=== PATIENT | female | born 1950 | race Caucasian/White ===

== ENCOUNTER → 2023-09-26 | Outpatient (CLI) | payer MEDICARE, SELFPAY ==
--- NOTE | 2023-09-26 11:37 | US_ITS ---
STUDY: RENAL ULTRASOUND - COMPLETE REASON FOR EXAM: Female, 73 years old. UTI TECHNIQUE: Ultrasound evaluation of the kidneys was performed with real-time and static olm[place]-scale imaging. COMPARISON: None. FINDINGS: RIGHT KIDNEY: Normal location of the right kidney, which is normal in size. The right kidney measures 10.4 cm. There is a normal cortex of the right kidney. The renal cortex measures 1.4 cm. There is no right renal mass or cyst. There are no right renal calculi. There is no right hydronephrosis. DISTAL RIGHT URETER: There is non-visualization of the distal right ureter. There is no demonstrated right ureterovesical junction calculus. There is a visualized right ureteral jet. LEFT KIDNEY: Normal location of the left kidney, which is normal in size. The left kidney measures 10.3 cm. There is a normal cortex of the left kidney. The renal cortex measures 1.5 cm. There is no left renal mass or cyst. There are no left renal calculi. There is no left hydronephrosis. DISTAL LEFT URETER: There is non-visualization of the distal left ureter. There is no demonstrated left ureterovesical junction calculus. There is a visualized left ureteral jet. BLADDER: The distended urinary bladder has a volume of 236 ml. The empty urinary bladder has a volume of ml. There is a normal wall thickness of the distended urinary bladder. There is no demonstrated mass within the urinary bladder. There are no demonstrated bladder calculi. US/Kidney and Bladder IMPRESSION: Normal ultrasound of the kidneys and urinary bladder. Electronically Signed: Tim Chiu MD at 22:57 EST ,
== END | disposition home or self-care (01) ==
PROVIDERS: PCP Family Medicine; Referring Provider Urology; Visit Provider Urology
DX: N39.0 Urinary tract infection, site not specified (principal)
CPT/HCPCS: 76770

== ENCOUNTER → 2023-12-13 | Outpatient (CLI) | payer MEDICARE, SELFPAY ==
[2023-12-15 09:57] LABS: Anion Gap 3 (5-15); BUN 17 mg/dL (7-18); BUN/Creat Ratio 15.9 RATIO (10-20); Calcium,Total 9.4 mg/dL (8.5-10.1); Chloride 102 mmol/L (98-107); Creatinine, Serum 1.07 mg/dL (0.55-1.02); EST Glomerular Filtration Rate 53 mL/min (>60); Est Glom Filt Rate - Afr Amer 64 mL/min (>60); Glucose 292 mg/dL (74-106); Potassium 4.1 mmol/L (3.5-5.1); Sodium Level 132 mmol/L (136-145)
[2023-12-15 10:07] LABS: Hemoglobin A1c 9.4 % (3.8-5.6)
== END | disposition home or self-care (01) ==
LOC: SDC 06-18 08:13
PROVIDERS: Anesthesiology; PCP Family Medicine; Referring Provider Urology; Visit Provider Urology
DX: N32.9 Bladder disorder, unspecified (principal); N39.0 Urinary tract infection, site not specified; N76.0 Acute vaginitis; N95.2 Postmenopausal atrophic vaginitis; R35.1 Nocturia; N81.10 Cystocele, unspecified; N81.6 Rectocele; E16.9 Disorder of pancreatic internal secretion, unspecified
CPT/HCPCS: 36415; 80048; 83036; 87086; 87088; 93005

== ENCOUNTER 2024-01-18 05:45 | Day surgery (SDC) | payer MEDICARE, SELFPAY ==
--- OUTSIDE RECORDS SUMMARY | 2024-01-18 05:56 | XMS RPT_ITS | CCD ---
Author Name Unknown Address [address] [place] [address] Organization [facility] Care Team Providers Care Director Web Name Role Phone ANTOINE OCAMPO Consulting Unavailable JHOANA CLARKE Attending Unavailable JHOANA CLARKE Primary Care Unavailable JHOANA CLARKE Admitting Unavailable PROVIDER, UNKNOWN Consulting Unavailable PROVIDER, UNKNOWN Consulting Unavailable PROVIDER, UNKNOWN Consulting Unavailable Esperanza Ng Primary Care Provider Antione Ocampo MD Primary Care Provider ANTIONE OCAMPO Primary Care Unavailable JULIO AZEVEDO Attending Unavailable ANTIONE OCAMPO Primary Care Unavailable ESPERANZA NG Primary Care Unavailabl e JULIO AZEVEDO Referring Unavailable Esperanza Ng Primary Care Provider Antione Ocampo MD Unavailable Marvin JONES, Dr. Diallo Unavailable Dr. Ashlee Vela MD Unavailable ([place]), [facility] Unavailabl e Dr. Ej White MD Unavailable Traci Parham Unavailable [facility] Unavailable [phone] Claudio Clemente MD Unavailable [facility] Sur[facility] Unavailable Carolina Abraham MD Unavailable Melanie Puckett LPN Unavailable Julio De León PA-C Unavailable Kimmy Goff LPN Unavailable Unavailable Navin CARGO SERVICES COORDINATOR, Suzy C Unavailable Unavailable Gogoi (scribe), Hemanta Unavailable Unavaila ble Lee CARGO SERVICES COORDINATOR, Sindhu Unavailable Unavailable Davis JONES, Esperanza Burgess Unavailable Michael EDWARDS, Rola Marques Unavailable Farrah EDWARDS, Jesse Grant Unavailable [phone] Daphnie Yan Unavailable Unavailable Kristin CARGO SERVICES COORDINATOR, Alida Unavailable Unavaila ble Jhon CARGO SERVICES COORDINATOR, Dee Unavailable Unavailable Jorge GUZMAN, Rola Burgess Unavailable Unavaila ble Abbe CARGO SERVICES COORDINATOR, Toby Unavailable Unavailable Marvin GUZMAN, Anastasia Unavailable Toney GUZMAN, Linn Y Unavailable Unavailable Hamilton CARGO SERVICES COORDINATOR, Isha Unavailable Unavailable Mutersbaugh CARGO SERVICES COORDINATOR, Lety K Unavailable Unavai kush Cavazos PA-C, Edith J Unavailable [phone] Alon ([facility]), Erasmo Unavailable Unavailab le Sung OPERATOR HELPER, Nancy Unavailable Unavailable Richert CARGO SERVICES COORDINATOR, Nalini L Unavailable Unavailab le Derik CARGO SERVICES COORDINATOR, Carolina M Unavailable Unavailab le Daniels CARGO SERVICES COORDINATOR, Gabrielle Gonzalez Unavailable Unavailab le Behzad MA, Dee Unavailable Unavailable Vanaman, Lisa A Unavailable Unavailable Vess CARGO SERVICES COORDINATOR, Nenelsone L Unavailable Unavailable Wengerd CARGO SERVICES COORDINATOR, Estrellita Unavailable Unavailmiranda Mcfarland CARGO SERVICES COORDINATOR, Candace Garza Unavailable Unavaila ble Unavailable Unavailable King KAREN, Dr. Garnett Unavailable Allergies Allergy Classification Reported Allergen(s) Allergy Type Date of Onset Reaction(s) Facility (2 sources) Aspirin; Translations: [ASPIRIN] Drug Allergy 6 [facility] Repository (1 source) Sulfonamides (Antibiotic) Drug allergy (disorder) [facility] Repository (12 sources) Aspirin Drug Allergy 6 [facility] Work Phone: (4 sources) Sulfonamides (Antibiotic); Translations: [SULFA (SULFONAMIDE ANTIBIOTICS)] Propensity to adverse reactions 6 [facility] Work Phone: (1 source) [facility], [facility].; [facility], [facility]. (1 source) [employer].; [employer]. (1 source) [employer].; [employer]. (1 source) [employer].; [employer]. (1 source) [employer].; [employer]. (1 source) [employer].; [employer]. (1 source) [employer].; [employer]. (1 source) [employer].; [employer]. (1 source) [employer].; [employer]. Medications Current Medications Medication Drug Class(es) Dates Sig (Normalized) Sig (Original) ascorbic acid 1000 mg oral tablet (12 sources) Vitamin C Completed/Discontinued Medications Medication Drug Class(es) Dates Sig (Normalized) Sig (Original) ALPRAZolam 0.5 mg oral tablet (9 sources) Benzodiazepine Start: 11-17-2014 End: 01-16-2015 amoxicillin 875 mg / clavulanate 125 mg oral tablet (18 sources) Penicillin-class Antibacterial Start: 08-14-2023 End: 08-24-2023 Problems Active Problems Problem Classification Problem Date Documented Da te Episodic/Chronic Acute cerebrovascular disease (9 sources) Hematoma of subdural space of neuraxis; Translations: [Subdural hemorrhage] 10-14-2020 Chronic Administrative/social admission (9 sources) Issue of repeat prescriptions 05-17-2022 Episodic Allergic reactions (20 sources) Contact dermatitis; Translations: [Unspecified contact dermatitis, unspecified cause] 06-12-2019 Episodic Diabetes mellitus with complications (20 sources) Type 2 diabetes mellitus; Translations: [Type 2 diabetes mellitus with other specified complication] 10-24-2023 Chronic Diabetes mellitus without complication (20 sources) Diabetes mellitus; Translations: [Type 2 diabetes mellitus without complications] 03-02-2022 Chronic Disorders of lipid metabolism (20 sources) Hyperlipidemia; Translations: [Hyperlipidemia, unspecified] 10-24-2023 Chronic Essential hypertension (12 sources) Hypertensive disorder; Translations: [Essential (primary) hypertension] Onset: 01-18-2013 01-18-2013 Chronic Genitourinary symptoms and ill-defined conditions (20 sources) Increased frequency of urination; Translations: [Frequency of micturition] Episodic Headache; including migraine (9 sources) Headache; Translations: [Headache] 10-14-2020 Episodic Immunizations and screening for infectious disease (20 sources) Need for prophylactic vaccination and inoculation against influenza; Translations: [Needs influenza immunization] 09-02-2014 Episodic Malaise and fatigue (9 sources) Fatigue; Translations: [Other fatigue] 10-14-2020 Episodic Osteoarthritis (9 sources) Osteoarthritis of hip; Translations: [Osteoarthritis of hip, unspecified] 10-24-2023 Chronic Other aftercare (9 sources) Drug indicated; Translations: [Other alf (current) drug therapy] 05-17-2022 Episodic Other circulatory disease (9 sources) Vasculitis; Translations: [Arteritis, unspecified] 10-14-2020 Chronic Other circulatory disease (9 sources) 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; Translations: [Personal history of other diseases of the circulatory system] 10-24-2023 Episodic Other ear and sense organ disorders (9 sources) Impacted cerumen; Translations: [Impacted cerumen, unspecified ear] 10-14-2020 Episodic Other injuries and conditions due to external causes (9 sources) Unspecified site injury 10-14-2020 Episodic Other lower respiratory disease (9 sources) Cough; Translations: [Cough] 10-14-2020 Episodic Other nervous system disorders (9 sources) Ataxia; Translations: [Ataxia, unspecified] 10-14-2020 Episodic Other non-traumatic joint disorders (9 sources) Pain in left shoulder; Translations: [Pain in joint, shoulder region] 10-14-2020 Episodic Other nutritional; endocrine; and metabolic disorders (20 sources) Overweight in adulthood with body mass index of 25 or more but less than 30; Translations: [Body mass index (BMI) 27.0-27.9, adult] 04-11-2019 Episodic Other nutritional; endocrine; and metabolic disorders (18 sources) Overweight; Translations: [Overweight] 04-15-2022 Episodic Other screening for suspected conditions (not mental disorders or infectious disease) (20 sources) Encounter for screening mammogram for malignant neoplasm of breast; Translations: [Patient encounter status] Onset: 01-27-2023 01-27-2023 Episodic Other upper respiratory disease (9 sources) Allergic rhinitis; Translations: [Allergic rhinitis, unspecified] 10-14-2020 Chronic Residual codes; unclassified (9 sources) Influenza vaccination declined; Translations: [Immunization not carried out because of patient refusal] 10-24-2023 Episodic Skin and subcutaneous tissue infections (9 sources) Infection of finger; Translations: [Cellulitis of unspecified finger] 10-14-2020 Episodic Sprains and strains (9 sources) Shoulder strain; Translations: [Strain of unspecified muscle, fascia and tendon at shoulder and upper arm level, left arm, initial encounter] 10-14-2020 Episodic Transient cerebral ischemia (9 sources) Carotid artery insufficiency syndrome; 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)] 05-17-2022 Chronic Unclassified (9 sources) 06-23-2023 Unclassified (9 sources) 06-23-2023 Unclassified (9 sources) 06-23-2023 Urinary tract infections (20 sources) Acute cystitis; Translations: [Acute cystitis without hematuria] 10-14-2020 Episodic Viral infection (18 sources) Herpes zoster; Translations: [Zoster without complications] 10-14-2020 Episodic Past or Other Problems Problem Classification Problem Date Documented Date Episodic/Chronic Diabetes mellitus without complication (4 sources) Impaired glucose tolerance; Translations: [Impaired glucose tolerance (oral)] Onset: 01-18-2013 03 Episodic Residual codes; unclassified (3 sources) History of subdural hematoma; Translations: [Other specified postprocedural states] Onset: 01-18-2013 01-18-2013 Episodic Results Test Name Value Interpretation Reference Range Facil ity Vital Signs Date Time Vital Sign Value Performing Clinician Faci lity 10-24-2023 08:54-0500 Body height 165.1 cm Antione Ocampo MD Work Phone: [employer]; [employer] 10-24-2023 08:54-0500 Body mass index (BMI) [Ratio] 26.13 kg/m2 Antione Ocampo MD Work Phone: [employer]; [employer] 10-24-2023 08:54-0500 Body surface area Derived from formula 1.78 m2 Antione Ocampo MD Work Phone: [employer]; [employer] 10-24-2023 08:54-0500 Body weight 71.22 kg Antione Ocampo MD Work Phone: [facility], [facility].; [employer] [facility], Inc[employer] 10-24-2023 08:54-0500 Diastolic blood pressure 82 mm[Hg] Antione Ocampo MD Work Phone: [facility], Inc.; [employer] 10-24-2023 08:54-0500 Heart rate 74 /min Antione Ocampo MD Work Phone: [place] [employer] [facility], Inc.; [employer] 10-24-2023 08:54-0500 Systolic blood pressure 138 mm[Hg] Antione Ocampo MD Work Phone: [place] [employer] [facility], [employer].; [employer] 06-23-2023 09:54-0400 Body height 165.1 cm Toby Mcadams [facility], Inc.; [place] [employer] [facility], [facility] 06-23-2023 09:54-0400 Body mass index (BMI) [Ratio] 25.29 kg/m2 Toby Mcadams [facility], Inc.; [employer] 06-23-2023 09:54-0400 Body surface area Derived from formula 1.76 m2 Toby Mcadams CARGO SERVICES COORDINATOR [facility], Inc.; [employer] 06-23-2023 09:54-0400 Body weight 68.95 kg Toby Mcadams CARGO SERVICES COORDINATOR [facility], Inc.; [employer] 06-23-2023 09:54-0400 Diastolic blood pressure 57 mm[Hg] Toby Mcadams CARGO SERVICES COORDINATOR [facility], Inc.; [employer] [facility], Inc[facility] 06-23-2023 09:54-0400 Heart rate 71 /min Toby Mcadams CARGO SERVICES COORDINATOR [facility], Inc.; [employer] 06-23-2023 09:54-0400 Systolic blood pressure 97 mm[Hg] Toby Mcadams CARGO SERVICES COORDINATOR [facility], Inc.; [employer] 06-09-2023 09:39-0400 Body height 165.1 cm Alida Foster CARGO SERVICES COORDINATOR [facility] 06-09-2023 09:39-0400 Body mass index (BMI) [Ratio] 25.46 kg/m2 [facility].; [facility]. 06-09-2023 09:39-0400 Body surface area Derived from formula 1.77 m2 [facility].; [facility] 06-09-2023 09:39-0400 Body temperature 98.7 [degF] [facility].; [facility] 06-09-2023 09:39-0400 Body weight 69.4 kg [facility].; [facility] 06-09-2023 09:39-0400 Diastolic blood pressure 63 mm[Hg] [facility].; [facility] 06-09-2023 09:39-0400 Heart rate 69 /min [facility].; [facility] 06-09-2023 09:39-0400 Systolic blood pressure 99 mm[Hg] [facility].; [facility]. 04-09-2023 12:27-0400 Body temperature 97.81 [degF] Krislyn Aberegg PA Work Phone: [facility] 04-09-2023 12:27-0400 Body weight 70.76 kg Krislyn Aberegg PA Work Phone: [facility] 04-09-2023 12:27-0400 Diastolic blood pressure 80 mm[Hg] Krislyn Aberegg PA Work Phone: [facility] 04-09-2023 12:27-0400 Heart rate 70 /min Krislyn Aberegg PA Work Phone: [facility] 04-09-2023 12:27-0400 Respiratory rate 16 /min Krislyn Aberegg PA Work Phone: [facility] 04-09-2023 12:27-0400 SaO2% (BldA) [Mass fraction] 95 % Mickey PHILLIPS Work Phone: [facility] 04-09-2023 12:27-0400 Systolic blood pressure 124 mm[Hg] Mickey Sargent PA Work Phone: [facility] 01-09-2023 15:16-0500 Body height 165.1 cm Rola Patel RN [place] [employer] [facility].; [employer]. 01-09-2023 15:16-0500 Body mass index (BMI) [Ratio] 27.12 kg/m2 Rola Patel RN [place] [employer] [facility] Center[facility].; [employer] [facility]. 01-09-2023 15:16-0500 Body surface area Derived from formula 1.81 m2 Rola Patel RN [place] [employer] [facility].; [employer] [facility]. 01-09-2023 15:16-0500 Body temperature 98.6 [degF] Rola Patel RN [place] [employer].; [employer]. 01-09-2023 15:16-0500 Body weight 73.94 kg Rola Patel RN [place] [employer] [facility].; [employer]. 01-09-2023 15:16-0500 Diastolic blood pressure 78 mm[Hg] Rola Patel RN [employer] [facility].; [employer]. 01-09-2023 15:16-0500 Heart rate 73 /min Rola Patel RN [employer].; [employer]. 01-09-2023 15:16-0500 Systolic blood pressure 129 mm[Hg] Rola Patel RN [employer].; [employer] [facility]. 12-23-2022 09:09-0500 Body height 165.1 cm Carolina More LPN [place] [employer] [facility].; [employer]. 12-23-2022 09:09-0500 Body mass index (BMI) [Ratio] 26.79 kg/m2 Carolina [facility], Inc.; [employer] [facility], Inc[facility] 12-23-2022 09:09-0500 Body surface area Derived from formula 1.8 m2 Carolina Bravo [facility], [facility].; [employer] [facility], Inc[employer] 12-23-2022 09:09-0500 Body temperature 96.2 [degF] Carolina Bravo [facility], [facility].; [employer] [facility], Inc[facility] 12-23-2022 09:09-0500 Body weight 73.03 kg Carolina Bravo [facility], [facility].; [employer] [facility], Inc[facility] 12-23-2022 09:09-0500 Diastolic blood pressure 82 mm[Hg] Carolina [facility], Inc.; [employer] [facility], Inc[facility] 12-23-2022 09:09-0500 Heart rate 83 /min Carolina Bravo [facility], Inc.; [employer] [facility], Inc[facility] 12-23-2022 09:09-0500 Systolic blood pressure 123 mm[Hg] Carolina [facility], Inc.; [employer] 09-05-2022 08:57-0400 Body height 165.1 cm Gabrielle Reid [facility], Inc.; [employer] 09-05-2022 08:57-0400 Body mass index (BMI) [Ratio] 28.12 kg/m2 Gabrielle Reid [facility], Inc.; [employer] 09-05-2022 08:57-0400 Body surface area Derived from formula 1.84 m2 [facility] [employer] [facility], Inc.; [employer] 09-05-2022 08:57-0400 Body temperature 96.9 [degF] Gab[facility]elle [facility] [employer] [facility], Inc.; [employer] 09-05-2022 08:57-0400 Body weight 76.66 kg Gabrielle Reid [facility] [employer] 09-05-2022 08:57-0400 Diastolic blood pressure 83 mm[Hg] Gabrielle Reid [facility].; [employer] 09-05-2022 08:57-0400 Heart rate 67 /min Juli FranklinNew[facility] HospitalAtt[facility], Inc.; [employer] 09-05-2022 08:57-0400 Systolic blood pressure 136 mm[Hg] Juli Daniels [facility].; [employer] 08-19-2022 11:27-0400 Body height 165.1 cm Antione Ocampo MD Work Phone: [employer].; [employer] 08-19-2022 11:27-0400 Body mass index (BMI) [Ratio] 28.12 kg/m2 Antione Ocampo MD Work Phone: [employer].; [employer] 08-19-2022 11:27-0400 Body surface area Derived from formula 1.84 m2 Antione Ocampo MD Work Phone: [employer].; [employer] 08-19-2022 11:27-0400 Body weight 76.66 kg Antoine Ocampo MD Work Phone: [employer].; [employer] 08-19-2022 11:27-0400 Diastolic blood pressure 86 mm[Hg] Antione Ocampo MD Work Phone: [employer].; [employer] 08-19-2022 11:27-0400 Heart rate 72 /min Antione Ocampo MD Work Phone: [employer].; [employer] 08-19-2022 11:27-0400 Systolic blood pressure 136 mm[Hg] Antione Ocampo MD Work Phone: [employer].; [employer] 06-24-2022 15:25-0400 Body height 165.1 cm Rola Patel RN [facility].; [employer] [facility] CenterPixelSteam [facility]. 06-24-2022 15:25-0400 Body mass index (BMI) [Ratio] 26.96 kg/m2 Rola Patel RN [facility].; [employer] [facility]. 06-24-2022 15:25-0400 Body surface area Derived from formula 1.81 m2 Rola Patel RN [facility]Pixel[facility].; [employer] [facility]. 06-24-2022 15:25-0400 Body weight 73.48 kg Rola Patel RN [facility]Pixel[facility].; [employer] [facility] CenterPixelSteam [facility]. 06-24-2022 15:25-0400 Diastolic blood pressure 79 mm[Hg] Rola Patel RN [facility].; [employer] [facility] CenterPixelSteam [facility]. 06-24-2022 15:25-0400 Systolic blood pressure 146 mm[Hg] Rola Patel RN [place] [employer] [facility] CenterPixelSteam [facility].; [employer] [facility]. 05-17-2022 09:59-0400 Body height 165.1 cm Dee Wen MA [facility]Pixel[facility].; [employer] [facility] CenterPixelSteam [facility]. 05-17-2022 09:59-0400 Body mass index (BMI) [Ratio] 27.29 kg/m2 Dee Wen MA [place] [employer] [facility] CenterPixelSte[facility].; [employer] [facility]. 05-17-2022 09:59-0400 Body surface area Derived from formula 1.82 m2 Dee Wen MA [place] [employer] [facility] CenterPixelSteam [facility].; [employer] [facility]. 05-17-2022 09:59-0400 Body weight 74.39 kg Dee Wen MA [place] [employer] [facility] CenterPixelSteam [facility].; [employer] [facility]. 05-17-2022 09:59-0400 Diastolic blood pressure 75 mm[Hg] Dee Wen MA [place] [employer] [facility] CenterPixelSteam [facility].; [employer]. 05-17-2022 09:59-0400 Heart rate 65 /min Dee Wen MA [place] [employer] [facility] CenterPixelSteam [facility].; [employer]. 05-17-2022 09:59-0400 Systolic blood pressure 125 mm[Hg] Dee Wen [facility].; [employer]. 04-14-2022 10:14-0400 Body height 165.1 cm Nancy Sung [facility], [facility].; [employer] 04-14-2022 10:14-0400 Body mass index (BMI) [Ratio] 27.62 kg/m2 Nancy Sung [facility] [employer] [facility] CenterPixelSteam Inc.; [employer] 04-14-2022 10:14-0400 Body surface area Derived from formula 1.83 m2 Nancy Sung [facility] [employer] [facility] CenterPixelSteam [facility].; [employer]. 04-14-2022 10:14-0400 Body weight 75.3 kg Nancy Sung [facility] [employer] [facility] CenterPixelSteam [facility].; [employer], [employer]. 04-14-2022 10:14-0400 Diastolic blood pressure 65 mm[Hg] Nancy Sung [facility] [employer] [facility] CenterPixelSte[facility].; [employer], [employer]. 04-14-2022 10:14-0400 Heart rate 69 /min Nancy Sung [facility] [employer] [facility] CenterPixelSte[facility].; [employer]. 04-14-2022 10:14-0400 Systolic blood pressure 106 mm[Hg] Nancy Sung [facility] [employer] [facility] CenterPixelSteam [facility].; [employer] 03-02-2022 10:45-0400 Body height 165.1 cm Antione Ocampo MD Work Phone: [place] [employer]. 03-02-2022 10:45-0400 Body mass index (BMI) [Ratio] 27.99 kg/m2 Antione Ocampo MD Work Phone: [employer].; [employer]. 03-02-2022 10:45-0400 Body surface area Derived from formula 1.84 m2 Antione Ocampo MD Work Phone: [employer].; [employer]. 03-02-2022 10:45-0400 Body weight 76.29 kg Antione Ocampo MD Work Phone: [employer] [facility] CenterPixel[facility].; [employer]. 03-02-2022 10:45-0400 Diastolic blood pressure 82 mm[Hg] Antione Ocampo MD Work Phone: [place] [employer] 03-02-2022 10:45-0400 Heart rate 66 /min Antione Ocampo MD Work Phone: [employer]. 03-02-2022 10:45-0400 Systolic blood pressure 139 mm[Hg] Antione Ocampo MD Work Phone: [place] [employer].; [employer]. 10-11-2021 09:19-0500 Body height 165.1 cm [facility] [employer] [facility], [facility].; [employer]. 10-11-2021 09:19-0500 Body mass index (BMI) [Ratio] 27.29 kg/m2 Isha Hamilton [facility] [employer] [facility], Inc.; [employer]. 10-11-2021 09:19-0500 Body surface area Derived from formula 1.82 m2 Isha Hamilton CARGO SERVICES COORDINATOR [employer] [facility], [facility].; [employer]. 10-11-2021 09:19-0500 Body temperature 97.3 [degF] Isha Hamilton CARGO SERVICES COORDINATOR [place] [employer] [facility], [facility].; [employer]. 10-11-2021 09:19-0500 Body weight 74.39 kg Isha Hamilton LPN [place] [employer] [facility], [facility].; [employer]. 10-11-2021 09:19-0500 Diastolic blood pressure 83 mm[Hg] Isha Hamilton LPN [place] [facility], [facility].; [employer]. 10-11-2021 09:19-0500 Heart rate 63 /min Isha Hamilton LPN [place] [facility], [facility].; [employer] 10-11-2021 09:19-0500 Systolic blood pressure 139 mm[Hg] Isha Hamilton LPN [place] [facility], [facility].; [employer]. 08-18-2021 13:21-0400 Body height 165.1 cm Carolina Bravo Derik CROSS [facility], Inc.; [place] [facility], [facility]. 08-18-2021 [id number] Body mass index (BMI) [Ratio] 26.96 kg/m2 Carolina Bravo Derik [facility], Inc.; [facility], Inc. 08-18-2021 13:[id number] Body surface area Derived from formula 1.81 m2 Carolina M Derik [facility], Inc.; [facility], Inc. 08-18-2021 [id number]:[id number] Body weight 73.48 kg Carolina Bravo Derik [facility], Inc.; [facility], [facility]. 08-18-2021 13:0400 Diastolic blood pressure 64 mm[Hg] Carolina Bravo Derik [facility], Inc.; [place] [facility], Inc. 08-18-2021 13:210400 Heart rate 67 /min Carolina Bravo Derik [facility], Inc.; [employer] [employer], Inc. 08-18-2021 13:210400 Systolic blood pressure 105 mm[Hg] Carolina Bravo Derik [facility], Inc.; [place] [facility], [facility]. 08-06-2021 08:130400 Body height 165.1 cm Dee Ferreira CARGO SERVICES COORDINATOR [facility], [facility].; [place] [facility], Inc. 08-06-2021 08:13-0400 Body mass index (BMI) [Ratio] 26.96 kg/m2 Dee Ferreira LPN [facility], Inc.; [employer], Inc. 08-06-2021 08:13-0400 Body surface area Derived from formula 1.81 m2 Dee Ferreira CARGO SERVICES COORDINATOR [facility], [facility].; [employer]ola [employer], [facility]. 08-06-2021 08:13-0400 Body temperature 97.4 [degF] Dee Ferreira LPN [facility], [facility].; [employer], Inc[employer] 08-06-2021 08:130400 Body weight 73.48 kg Dee Ferreira LPN [facility], [facility].; Ar[employer]ONTRAP[employer] [facility]. 08-06-2021 08:13-0400 Diastolic blood pressure 77 mm[Hg] Dee Ferreira LPN [place] [facility].; [employer]. 08-06-2021 08:13-0400 Heart rate 72 /min Dee Ferreira LPN [facility].; [employer]. 08-06-2021 08:13-0400 Systolic blood pressure 132 mm[Hg] Dee Ferreira LPN [place] [employer] [facility].; [employer]. 03-08-2021 15:40-0400 Body height 165.1 cm Melanie Italo CARGO SERVICES COORDINATOR Work Phone: [employer].; [employer]. 03-08-2021 15:40-0400 Body mass index (BMI) [Ratio] 26.63 kg/m2 Melanie Italo CARGO SERVICES COORDINATOR Work Phone: [employer].; [employer]. 03-08-2021 15:40-0400 Body surface area Derived from formula 1.8 m2 Melanie Italo CARGO SERVICES COORDINATOR Work Phone: [employer].; [employer]. 03-08-2021 15:40-0400 Body weight 72.58 kg Melanie Italo CARGO SERVICES COORDINATOR Work Phone: [employer].; [employer]. 03-08-2021 15:40-0400 Diastolic blood pressure 81 mm[Hg] Melanie Italo CARGO SERVICES COORDINATOR Work Phone: [employer].; [employer]. 03-08-2021 15:40-0400 Heart rate 63 /min Melanie Italo CARGO SERVICES COORDINATOR Work Phone: [employer].; [employer]. 03-08-2021 15:40-0400 Systolic blood pressure 133 mm[Hg] Melanie Italo CARGO SERVICES COORDINATOR Work Phone: [employer].; [employer]. 02-19-2021 09:11-0400 Body height 165.1 cm Dee Ferreira LPN [facility], [facility].; [employer] [facility] CenterPixel[facility]. 02-19-2021 09:11-0400 Body mass index (BMI) [Ratio] 26.96 kg/m2 Dee Ferreira LPN [facility], [facility].; [facility], [facility]. 02-19-2021 09:11-0400 Body surface area Derived from formula 1.81 m2 Dee Ferreira LPN [facility], [facility].; [facility], [facility]. 02-19-2021 09:11-0400 Body weight 73.48 kg Dee Ferreira LPN [facility].; [facility] HospitalPixelSteam [facility]. 02-19-2021 09:11-0400 Diastolic blood pressure 72 mm[Hg] Dee Ferreira LPN [facility].; [place] [facility] Center[facility]. 02-19-2021 09:11-0400 Heart rate 71 /min Dee Ferreira LPN [facility].; [employer] [facility] CenterPixel[facility]am [facility]. 02-19-2021 09:11-0400 Systolic blood pressure 116 mm[Hg] Dee Ferreira LPN [facility].; [employer] [facility], [facility]. 10-14-2020 14:58-0500 Body height 165.1 cm Espearnza Ng MD Work Phone: [facility] HospitalPixel[facility].; [place] [facility] [facility], [facility]. 10-14-2020 14:58-0500 Body mass index (BMI) [Ratio] 26.63 kg/m2 Esperanza Ng MD Work Phone: [place] [facility] Center[facility].; ArriolaONTRAP[employer] [facility]. 10-14-2020 14:58-0500 Body surface area Derived from formula 1.8 m2 Esperanza Ng MD Work Phone: [place] [facility] CenterPixel[facility].; Ar[employer]olaONTRAPORT [facility]. 10-14-2020 14:58-0500 Body weight 72.58 kg Esperanza Ng MD Work Phone: [place] [facility] Center[facility].; [employer]. 10-14-2020 14:58-0500 Diastolic blood pressure 74 mm[Hg] Esperanza Ng MD Work Phone: [employer].; [employer]. 10-14-2020 14:58-0500 Heart rate 71 /min Esperanza Ng MD Work Phone: [employer].; [employer] 10-14-2020 14:58-0500 Systolic blood pressure 136 mm[Hg] Esperanza Ng MD Work Phone: [employer].; [employer] 07-08-2020 15:07-0400 Body height 165.1 cm Antione Ocampo MD Work Phone: [employer].; [employer] 07-08-2020 15:07-0400 Body mass index (BMI) [Ratio] 26.63 kg/m2 Antione Ocampo MD Work Phone: [employer].; [employer]. 07-08-2020 15:07-0400 Body surface area Derived from formula 1.8 m2 Antione Ocampo MD Work Phone: [employer].; [employer]. 07-08-2020 15:07-0400 Body weight 72.58 kg Antione Ocampo MD Work Phone: [employer].; [employer] 07-08-2020 15:07-0400 Diastolic blood pressure 81 mm[Hg] Antione Ocampo MD Work Phone: [employer].; [employer] 07-08-2020 15:07-0400 Heart rate 60 /min Antione Ocampo MD Work Phone: [employer].; [employer]. 07-08-2020 15:07-0400 Systolic blood pressure 135 mm[Hg] Antione Ocampo MD Work Phone: [employer].; [employer]. 05-07-2020 09:48-0400 Body weight 72.12 kg Dee Ferreira LPN [employer].; [employer]. 05-07-2020 09:48-0400 Diastolic blood pressure 74 mm[Hg] Dee Ferreira LPN [facility].; Ar[employer]ola [employer] [facility]. 05-07-2020 09:48-0400 Heart rate 68 /min Dee Ferreira LPN [facility] HospitalPixel[facility].; [employer] [facility]. 05-07-2020 09:48-0400 Systolic blood pressure 114 mm[Hg] Dee Ferreira LPN [place] [facility] CenterPixel[facility].; Ar[employer]olaONTRAP[employer] [facility]. 03-19-2020 08:27-0400 Body height 165.1 cm Rola Patel RN [place] [facility] CenterPixel[facility].; [employer]. 03-19-2020 08:27-0400 Body mass index (BMI) [Ratio] 27.29 kg/m2 Rola Patel RN [place] [facility] CenterPipedrive.; ArriolaONTRAPORT [facility]. 03-19-2020 08:27-0400 Body surface area Derived from formula 1.82 m2 Rola Patel RN [place] [facility] CenterPixel[facility]am [facility].; Ar[employer]ONTRAP[employer] [facility]. 03-19-2020 08:27-0400 Body weight 74.39 kg Rola Patel RN [employer].; Ar[employer]ONTRAP[employer] [facility]. 03-19-2020 08:27-0400 Diastolic blood pressure 72 mm[Hg] Rola Patel RN [place] [employer].; Ar[employer]olaONTRAP[employer] [facility]. 03-19-2020 08:27-0400 Heart rate 64 /min Rola Patel RN [place] [employer] [facility].; [employer]ONTRAP[employer] [facility]. 03-19-2020 08:27-0400 Systolic blood pressure 112 mm[Hg] Rola Patel RN [employer].; [employer]. 09-19-2019 08:15-0500 Body height 165.1 cm Esperanza Ng MD Work Phone: [employer].; [employer]. 09-19-2019 08:15-0500 Body mass index (BMI) [Ratio] 27.29 kg/m2 Esperanza Ng MD Work Phone: [employer].; [employer] 09-19-2019 08:15-0500 Body surface area Derived from formula 1.82 m2 Esperanza Ng MD Work Phone: [employer], [employer].; [employer] 09-19-2019 08:15-0500 Body weight 74.39 kg Esperanza Ng MD Work Phone: [employer] 09-19-2019 08:15-0500 Diastolic blood pressure 80 mm[Hg] Esperanza Ng MD Work Phone: [employer].; [employer], [employer] 09-19-2019 08:15-0500 Heart rate 65 /min Esperanza Ng MD Work Phone: [employer], [employer].; [employer] 09-19-2019 08:15-0500 Systolic blood pressure 132 mm[Hg] Esperanza Ng MD Work Phone: [employer].; [employer] 06-12-2019 14:18-0400 Body height 165.1 cm Estrellita Castillo LPN [employer], [employer].; [employer] 06-12-2019 14:18-0400 Body mass index (BMI) [Ratio] 27.46 kg/m2 Estrellita Castillo LPN [employer], [employer].; [employer] 06-12-2019 14:18-0400 Body surface area Derived from formula 1.82 m2 Estrellita Castillo LPN [employer], [employer].; [employer] 06-12-2019 14:18-0400 Body weight 74.84 kg Estrellita Castillo LPN [employer], [employer].; [employer] 06-12-2019 14:18-0400 Diastolic blood pressure 80 mm[Hg] Estrellita Castillo LPN [employer], [employer].; [employer] 06-12-2019 14:18-0400 Heart rate 67 /min Estrellita Castillo LPN ArriolaGlobal [employer] [facility], Inc.; [employer] 06-12-2019 14:18-0400 Systolic blood pressure 133 mm[Hg] Estrellita Castillo LPN [employer]olaAtt[employer] Live, Inc.; [employer], [employer] 06-05-2019 08:30-0400 Body height 165.1 cm Estrellita Castillo LPN [facility] [employer] [facility], Inc.; [employer], [employer] 06-05-2019 08:30-0400 Body mass index (BMI) [Ratio] 27.47 kg/m2 Estrellita Castillo LPN [employer]olaAtt[employer] Live, Inc.; [employer], [employer] 06-05-2019 08:30-0400 Body surface area Derived from formula 1.82 m2 Estrellita Castillo LPN [employer]ola[employer] Live, Inc.; [employer] 06-05-2019 08:30-0400 Body weight 74.87 kg Estrellita Castillo LPN [facility] [employer], Inc.; [employer], [employer] 06-05-2019 08:30-0400 Diastolic blood pressure 78 mm[Hg] Estrellita Castillo [facility]PMem[facility] CenterAttune Live, Inc.; [employer], [employer] 06-05-2019 08:30-0400 Heart rate 66 /min Estrellita Castillo LPN ArriolaIwebalize, Inc.; [employer], [employer] 06-05-2019 08:30-0400 Systolic blood pressure 127 mm[Hg] Estrellita Castillo LPN [employer], [employer].; [employer] 04-18-2019 10:51-0400 Body height 165.1 cm Dee Ferreira CARGO SERVICES COORDINATOR [employer]olaAtt[employer] Live, Inc.; [employer], [employer] 04-18-2019 10:51-0400 Body mass index (BMI) [Ratio] 27.49 kg/m2 Dee Ferreira LPN [employer] Live, Inc.; [employer], [employer] 04-18-2019 10:51-0400 Body surface area Derived from formula 1.82 m2 Dee Ferreira LPN [employer], Inc.; [employer] 04-18-2019 10:51-0400 Body temperature 98.4 [degF] Dee Ferreira LPN [facility], Inc.; [employer] 04-18-2019 10:51-0400 Body weight 74.93 kg Dee Ferreira LPN [facility], Inc.; [employer] 04-18-2019 10:51-0400 Diastolic blood pressure 81 mm[Hg] Dee Ferreira LPN [place] [facility], Inc.; [employer] 04-18-2019 10:51-0400 Heart rate 65 /min Dee Ferreira LPN [employer]riola[employer] [facility], Inc.; [employer] 04-18-2019 10:51-0400 Systolic blood pressure 136 mm[Hg] Dee Ferreira LPN [employer]ola[employer] Live, Inc.; [employer], [employer] 04-11-2019 10:42-0400 Body height 165.1 cm Sindhu Howard LPN [place] [facility] [facility], Inc.; [employer] 04-11-2019 10:42-0400 Body mass index (BMI) [Ratio] 27.62 kg/m2 Sindhu Howard LPN [employer]ola[employer] Live, Inc.; [employer], [employer] 04-11-2019 10:42-0400 Body surface area Derived from formula 1.83 m2 Sindhu Howard LPN [employer]ola[employer] Live, Inc.; [employer], [employer]. 04-11-2019 10:42-0400 Body temperature 98.8 [degF] Sindhu Howard LPN [place] [employer], [employer].; [employer], [employer]. 04-11-2019 10:42-0400 Body weight 75.3 kg Sindhu Howard LPN Ar[employer]olaAtt[employer] Live, Inc.; [employer], [employer]. 04-11-2019 10:42-0400 Diastolic blood pressure 79 mm[Hg] Sindhu Howard LPN [employer] Live, Inc.; [employer], [employer]. 04-11-2019 10:42-0400 Heart rate 69 /min Sindhu Howard LPN [employer]ola[employer] Live, Inc.; [employer], [employer]. 04-11-2019 10:42-0400 Systolic blood pressure 119 mm[Hg] Sindhu Howard LPN [employer] 03-14-2019 07:49-0400 Body height 165.1 cm Rola Patel RN [employer]riolaAtt[employer] Live, Inc.; [employer] 03-14-2019 07:49-0400 Body mass index (BMI) [Ratio] 27.79 kg/m2 Rola Patel RN [employer]olaAtt[employer] Live, Inc.; [employer], [employer] 03-14-2019 07:49-0400 Body surface area Derived from formula 1.83 m2 Rola Patel RN [employer].; [employer], [employer]. 03-14-2019 07:49-0400 Body weight 75.75 kg Rola Patel RN [employer].; [employer], [employer] 03-14-2019 07:49-0400 Diastolic blood pressure 57 mm[Hg] Rola Patel RN ArriolaONTRAPORT Inc.; [employer], [employer]. 03-14-2019 07:49-0400 Heart rate 69 /min Rola Patel RN [employer].; [employer]. 03-14-2019 07:49-0400 Systolic blood pressure 105 mm[Hg] Rola Patel RN [employer], [employer].; [employer] 01-07-2019 11:33-0500 Body height 165.1 cm Gabrielle Reid LPN [employer], [employer].; [employer], [employer] 01-07-2019 11:33-0500 Body temperature 98.5 [degF] Gabrielle Reid LPN [employer].; [employer]. 01-07-2019 11:33-0500 Diastolic blood pressure 82 mm[Hg] Gabrielle Reid LPN [employer], [employer].; [employer], [employer] 01-07-2019 11:33-0500 Heart rate 65 /min Gabrielle Reid LPN [employer], [employer].; [employer], [employer] 01-07-2019 11:33-0500 Systolic blood pressure 145 mm[Hg] Gabrielle Reid LPN [employer], [employer].; [employer], [employer]. 11-15-2018 07:52-0500 Body height 165.1 cm Lety Major [facility], Inc.; [employer], [employer] 11-15-2018 07:52-0500 Body mass index (BMI) [Ratio] 27.62 kg/m2 Lety Yuri Cyrbaugh [facility], Inc.; Ar[employer]olaAtt[employer] Live, Inc. 11-15-2018 07:52-0500 Body surface area Derived from formula 1.83 m2 Lety Yuri Cyrbaugh [facility], Inc.; [employer], [employer]. 11-15-2018 07:52-0500 Body weight 75.3 kg Lety Yuri Cyrbaugh [facility], Inc.; [employer], [employer]. 11-15-2018 07:52-0500 Diastolic blood pressure 71 mm[Hg] Lety Yuri Cyrbaugh [facility], Inc.; [employer], [employer]. 11-15-2018 07:52-0500 Heart rate 66 /min Lety Yuri Cyrbaugh [facility], [employer].; [employer]. 11-15-2018 07:52-0500 Systolic blood pressure 134 mm[Hg] Lety Yuri Mutgermanbaugh [facility], Inc.; [employer], [employer]. 08-22-2018 10:50-0400 Body height 165.1 cm Carolina More [facility], Inc.; [employer]. 08-22-2018 10:50-0400 Body mass index (BMI) [Ratio] 27.46 kg/m2 Carolina More [facility], Inc.; [employer]. 08-22-2018 10:50-0400 Body surface area Derived from formula 1.82 m2 Carolina More [facility], Inc.; [employer]. 08-22-2018 10:50-0400 Body temperature 98.8 [degF] Carolina More [facility].; [employer]. 08-22-2018 10:50-0400 Body weight 74.84 kg Carolina Bravo Derik CARGO SERVICES COORDINATOR [employer]ola[employer] Live, Inc.; [employer]. 08-22-2018 10:50-0400 Diastolic blood pressure 60 mm[Hg] Carolina Bravo Derik CROSS [employer]olaAtt[employer] Live, Inc.; [employer] 08-22-2018 10:50-0400 Heart rate 65 /min Carolina Gamblelabach [facility], Inc.; [employer]. 08-22-2018 10:50-0400 Systolic blood pressure 99 mm[Hg] Carolina Gamblelabach [facility], Inc.; [employer]. 06-08-2018 10:45-0400 Body height 165.1 cm Sindhu Howard LPN [employer], Inc.; [employer]. 06-08-2018 10:45-0400 Body mass index (BMI) [Ratio] 27.46 kg/m2 Sindhu Howard CARGO SERVICES COORDINATOR [employer]olaAtt[employer] Live, Inc.; [employer]. 06-08-2018 10:45-0400 Body surface area Derived from formula 1.82 m2 Sindhu Howard LPN [employer], [employer].; [employer]. 06-08-2018 10:45-0400 Body temperature 98.8 [degF] Sindhu Howard LPN [employer], [employer].; [employer]. 06-08-2018 10:45-0400 Body weight 74.84 kg Sindhu Howard LPN [employer] Live, Inc.; [employer]. 06-08-2018 10:45-0400 Diastolic blood pressure 82 mm[Hg] Sindhu Howard LPN [employer], [employer].; [employer]. 06-08-2018 10:45-0400 Heart rate 65 /min Sindhu Howard LPN [employer], [employer].; [employer]. 06-08-2018 10:45-0400 Systolic blood pressure 144 mm[Hg] Sindhu Howard LPN [employer], Inc.; [employer]. 05-17-2018 08:01-0400 Body height 165.1 cm Hemanta Gomarizoli (scribe) [place] [facility], Inc.; [employer]Local [employer]. 05-17-2018 08:01-0400 Body mass index (BMI) [Ratio] 27.46 kg/m2 Hemanta Gogoi (scribe) [facility], Inc.; [employer]ONTRAPORT Inc. 05-17-2018 08:01-0400 Body surface area Derived from formula 1.82 m2 Hemanta Gogoi (scribe) [facility], Inc.; [employer]. 05-17-2018 08:01-0400 Body weight 74.84 kg Hemanta Gogoi (scribe) [place] [facility], [employer].; [employer]. 05-17-2018 08:01-0400 Diastolic blood pressure 58 mm[Hg] Hemanta Gogoi (scribe) [facility], Inc.; [employer]. 05-17-2018 08:01-0400 Heart rate 61 /min Hemanta Gogoi (scribe) [place] [facility], Inc.; [employer]. 05-17-2018 08:01-0400 Systolic blood pressure 114 mm[Hg] Hemanta Gogoi (scribe) [place] [facility], [employer].; [employer]. 05-07-2018 09:16-0400 Body height 165.1 cm Rola Patel RN [place] [facility] CenterPip[facility]rive.; [employer]. 05-07-2018 09:16-0400 Body mass index (BMI) [Ratio] 27.46 kg/m2 Rola Patel RN [place] [facility].; [employer]. 05-07-2018 09:16-0400 Body surface area Derived from formula 1.82 m2 Rola Ptael RN [place] [facility].; [employer]. 05-07-2018 09:16-0400 Body temperature 98.6 [degF] Rola Patel RN [place] [employer].; [employer]. 05-07-2018 09:16-0400 Body weight 74.84 kg Rola Patel RN [place] [employer].; [employer]. 05-07-2018 09:16-0400 Diastolic blood pressure 66 mm[Hg] Rola Patel RN [place] [facility], Inc.; Ar[employer]olaONTRAPORT Inc. 05-07-2018 09:16-0400 Heart rate 64 /min Rola Patel RN [place] [employer], Inc.; [employer]ONTRAP[employer] Inc. 05-07-2018 09:16-0400 Systolic blood pressure 113 mm[Hg] Rola Patel RN [place] [employer].; [employer] 05-03-2018 08:08-0400 Body height 165.1 cm Estrellita Castillo LPN [employer]riolaIwebalize, Inc.; [employer]. 05-03-2018 08:08-0400 Body mass index (BMI) [Ratio] 28.03 kg/m2 Estrellita Castillo LPN [employer]olaAtt[employer] Live, Inc.; [employer] 05-03-2018 08:08-0400 Body surface area Derived from formula 1.84 m2 Estrellita Castillo LPN [employer]olaONTRAPORT Inc.; [employer]. 05-03-2018 08:08-0400 Body weight 76.4 kg Estrellita Castillo LPN ArriolaIwebalize, Inc.; [employer] 05-03-2018 08:08-0400 Diastolic blood pressure 76 mm[Hg] Estrellita Castillo LPN [employer]ola[employer] Live, [employer].; [employer] 05-03-2018 08:08-0400 Heart rate 69 /min Estrellita Castillo LPN [employer]olaIwebalize, Inc.; [employer]. 05-03-2018 08:08-0400 Systolic blood pressure 135 mm[Hg] Estrellita Castillo LPN [employer]ONTRAP[employer] Inc.; [employer]. 04-27-2018 08:01-0400 Body height 165.1 cm Estrellita Castillo LPN [employer]olaGlobal [employer] [facility], Inc.; [employer]. 04-27-2018 08:01-0400 Body mass index (BMI) [Ratio] 27.34 kg/m2 Estrellita Wealexander CROSS [facility], Inc.; [employer], Inc. 04-27-2018 08:01-0400 Body surface area Derived from formula 1.82 m2 Estrellitaorin Castillo LPN [facility], Inc.; [employer], [employer] 04-27-2018 08:01-0400 Body weight 74.53 kg Estrellita Anna CROSS [place] [employer] [facility], Inc.; [employer] Live, Inc[employer] 04-27-2018 08:01-0400 Diastolic blood pressure 67 mm[Hg] Estrellita Wealexander [facility] [facility], Inc.; [employer], [employer] 04-27-2018 08:01-0400 Heart rate 62 /min Estrellita Wealexander CARGO SERVICES COORDINATOR [place] [employer] [facility], Inc.; [employer] 04-27-2018 08:01-0400 Systolic blood pressure 101 mm[Hg] Estrellita [facility]alexander [facility], Inc.; [employer], [employer] 01-19-2018 10:07-0500 Body height 165.1 cm Kimmy Goff [facility] [employer] [facility], Inc.; [employer] 01-19-2018 10:07-0500 Body mass index (BMI) [Ratio] 27.29 kg/m2 Kimmy Goff CARGO SERVICES COORDINATOR [place] [employer] [facility], Inc.; [employer] 01-19-2018 10:07-0500 Body surface area Derived from formula 1.82 m2 Kimmy Goff CARGO SERVICES COORDINATOR [place] [employer] [facility], Inc.; [employer] 01-19-2018 10:07-0500 Body temperature 97.7 [degF] Kimmy Goff [facility], Inc.; [employer] 01-19-2018 10:07-0500 Body weight 74.39 kg Kimmy Goff CARGO SERVICES COORDINATOR [place] [employer], [employer].; [employer] 01-19-2018 10:07-0500 Diastolic blood pressure 78 mm[Hg] Kimmy Goff CARGO SERVICES COORDINATOR [place] [facility] [facility], Inc.; [employer] 01-19-2018 10:07-0500 Heart rate 61 /min Kimmy Goff CARGO SERVICES COORDINATOR [employer].; [employer] 01-19-2018 10:07-0500 Systolic blood pressure 134 mm[Hg] Kimmy Goff [facility], Inc.; [employer] 12-12-2017 13:24-0500 Body height 165.1 cm Neilee L Vess CARGO SERVICES COORDINATOR [employer] 12-12-2017 13:24-0500 Body mass index (BMI) [Ratio] 27.79 kg/m2 Neilee L Vess [employer] SERVICES COORDINATOR [employer] 12-12-2017 13:24-0500 Body surface area Derived from formula 1.83 m2 Neilee L Vess CARGO SERVICES COORDINATOR [employer] 12-12-2017 13:24-0500 Body temperature 97.5 [degF] Neilee L Vess CARGO SERVICES COORDINATOR [employer] 12-12-2017 13:24-0500 Body weight 75.75 kg Neilee L Vess [employer] SERVICES COORDINATOR [employer] 12-12-2017 13:24-0500 Diastolic blood pressure 77 mm[Hg] Neilee L Vess CARGO SERVICES COORDINATOR [employer] 12-12-2017 13:24-0500 Heart rate 63 /min Neilee L Vess CARGO SERVICES COORDINATOR [employer] 12-12-2017 13:24-0500 Systolic blood pressure 173 mm[Hg] Neilee L Vess [employer] SERVICES COORDINATOR [employer] 11-07-2017 08:54-0500 Body height 165.1 cm Gabrielle Gonzalez [place] [facility] [employer] 11-07-2017 08:54-0500 Body mass index (BMI) [Ratio] 27.29 kg/m2 Juli Franklin [facility] [employer] 11-07-2017 08:54-0500 Body surface area Derived from formula 1.82 m2 Gabrielle Reid TAY [employer] [facility], Inc.; [employer] 11-07-2017 08:54-0500 Body weight 74.39 kg Gabrielle Reid TAY [place] [employer] [facility], Inc.; [employer] 11-07-2017 08:54-0500 Diastolic blood pressure 74 mm[Hg] Gabrielle Reid CARGO SERVICES COORDINATOR [place] [employer] [facility], Inc.; [employer] 11-07-2017 08:54-0500 Heart rate 80 /min Gabrielle Reid CARGO SERVICES COORDINATOR [employer] [facility], Inc.; [employer] 11-07-2017 08:54-0500 Systolic blood pressure 147 mm[Hg] Gabrielle Reid CARGO SERVICES COORDINATOR [employer] 09-02-2017 08:53-0400 Body height 165.1 cm Estrellita Castillo LPN [facility] [employer] [facility], Inc.; [employer] 09-02-2017 08:53-0400 Body mass index (BMI) [Ratio] 27.96 kg/m2 Estrellita Castillo LPN [employer] 09-02-2017 08:53-0400 Body surface area Derived from formula 1.84 m2 Estrellita Castillo LPN [employer] 09-02-2017 08:53-0400 Body temperature 97.1 [degF] [facility] [employer] [employer] 09-02-2017 08:53-0400 Body weight 76.2 kg [facility] [employer], [employer] 09-02-2017 08:53-0400 Diastolic blood pressure 74 mm[Hg] Estrellita Castillo LPN [employer] 09-02-2017 08:53-0400 Heart rate 67 /min [facility] [employer] [facility], [facility]. 09-02-2017 08:53-0400 Systolic blood pressure 119 mm[Hg] Estrellita Castillo [facility], [facility].; [facility], Inc. 07-27-2017 07:48-0400 Body height 165.1 cm Lety K Mutersbaugh CARGO SERVICES COORDINATOR [facility], Inc.; [place] [employer] [facility], Inc. 07-27-2017 07:48-0400 Body mass index (BMI) [Ratio] 27.96 kg/m2 Lety K Mutersbaugh CARGO SERVICES COORDINATOR [facility], [facility].; [place] [employer] [facility], [facility]. 07-27-2017 07:48-0400 Body surface area Derived from formula 1.84 m2 Lety K Mutersbaugh CARGO SERVICES COORDINATOR [facility], Inc.; [employer] 07-27-2017 07:48-0400 Body weight 76.2 kg Lety K Mutersbaugh [facility], Inc.; [employer], [facility]. 07-27-2017 07:48-0400 Diastolic blood pressure 82 mm[Hg] Lety K Mutersbaugh CARGO SERVICES COORDINATOR [facility], Inc.; [employer], [facility]. 07-27-2017 07:48-0400 Heart rate 67 /min Lety K Mutersbaugh [facility] [employer] [facility], [facility].; [employer] 07-27-2017 07:48-0400 Systolic blood pressure 105 mm[Hg] Lety K Mutersbaugh CARGO SERVICES COORDINATOR [facility], Inc.; [employer], [facility]. 04-25-2017 09:24-0400 Body height 165.1 cm Erasmo Pack) [facility], [facility].; [employer]. 04-25-2017 09:24-0400 Body mass index (BMI) [Ratio] 27.79 kg/m2 Erasmo Pack) [facility], Inc.; [employer] 04-25-2017 09:24-0400 Body surface area Derived from formula 1.83 m2 Erasmo Pack) [facility], Inc.; [employer] 04-25-2017 09:24-0400 Body temperature 97.3 [degF] Erasmo Chi (Scribe) [employer] 04-25-2017 09:24-0400 Body weight 75.75 kg Erasmo Chi (Scribe) [employer] 04-25-2017 09:24-0400 Diastolic blood pressure 64 mm[Hg] Erasmo Alon (Scribe) [employer] 04-25-2017 09:24-0400 Heart rate 73 /min Erasmo Chi (Scribe) [employer] 04-25-2017 09:24-0400 Systolic blood pressure 122 mm[Hg] Erasmo Alon (Scribe) [employer] 12-22-2016 14:28-0500 Body height 165.1 cm Candace Mcfarland LPN [employer] 12-22-2016 14:28-0500 Body mass index (BMI) [Ratio] 27.46 kg/m2 Candace Mcfarland LPN [employer] 12-22-2016 14:28-0500 Body surface area Derived from formula 1.82 m2 Candace Mcfarland LPN [employer] 12-22-2016 14:28-0500 Body weight 74.84 kg Candace Mcfarland LPN [employer] 12-22-2016 14:28-0500 Diastolic blood pressure 80 mm[Hg] Candace Mcfarland LPN [employer] 12-22-2016 14:28-0500 Heart rate 67 /min Candace Mcfarland LPN [employer] 12-22-2016 14:28-0500 Systolic blood pressure 123 mm[Hg] Candace Mcfarland LPN [employer] 10-20-2016 15:16-0500 Body height 165.1 cm Candace Kayla Mcfarland LPN [employer] 10-20-2016 15:16-0500 Body mass index (BMI) [Ratio] 27.46 kg/m2 Candace Kayla Mcfarland LPN [employer] 10-20-2016 15:16-0500 Body surface area Derived from formula 1.82 m2 Candace Kayla Mcfarland LPN [employer] 10-20-2016 15:16-0500 Body weight 74.84 kg Candace Kayla Mcfarland LPN [employer] 10-20-2016 15:16-0500 Diastolic blood pressure 80 mm[Hg] Candace Kayla Mcfarland LPN [employer] 10-20-2016 15:16-0500 Heart rate 64 /min Candace Mcfarland LPN [employer] 10-20-2016 15:16-0500 Systolic blood pressure 124 mm[Hg] Candace Kayla Mcfarland LPN [employer] 06-24-2016 10:06-0400 Body height 165.1 cm Candace Mcfarland LPN [employer] 06-24-2016 10:06-0400 Body mass index (BMI) [Ratio] 27.62 kg/m2 Candace Kayla Mcfarland LPN [employer] 06-24-2016 10:06-0400 Body surface area Derived from formula 1.83 m2 Candace Kayla Mcfarland LPN [employer], [employer]. 06-24-2016 10:06-0400 Body weight 75.3 kg Candace Kayla Mcfarland LPN [employer] 06-24-2016 10:06-0400 Diastolic blood pressure 81 mm[Hg] Candace Kayla Mcfarland LPN [employer] 06-24-2016 10:06-0400 Heart rate 67 /min Candacepankaj Mcfarland CARGO SERVICES COORDINATOR [employer] 06-24-2016 10:06-0400 Systolic blood pressure 131 mm[Hg] Candace Mcfarland LPN [employer] 06-16-2016 14:05-0400 Body height 165.1 cm Lety K Mutersbaugh CARGO SERVICES COORDINATOR [employer] 06-16-2016 14:05-0400 Body mass index (BMI) [Ratio] 27.79 kg/m2 Lety K Mutersbaugh CARGO SERVICES COORDINATOR [employer] 06-16-2016 14:05-0400 Body surface area Derived from formula 1.83 m2 Lety K Mutersbaugh CARGO SERVICES COORDINATOR [employer] 06-16-2016 14:05-0400 Body weight 75.75 kg Lety K Mutersbaugh CARGO SERVICES COORDINATOR [employer], [employer]. 06-16-2016 14:05-0400 Diastolic blood pressure 64 mm[Hg] Lety K Mutersbaugh CARGO SERVICES COORDINATOR [employer] 06-16-2016 14:05-0400 Heart rate 64 /min Lety K Mutersbaugh CARGO SERVICES COORDINATOR [employer] 06-16-2016 14:05-0400 Systolic blood pressure 108 mm[Hg] Lety K Mutersbaugh CARGO SERVICES COORDINATOR [employer], [employer]. 04-21-2016 08:28-0400 Body height 165.1 cm Gabrielle Gonzalez [place] CARGO SERVICES COORDINATOR [employer] 04-21-2016 08:28-0400 Body mass index (BMI) [Ratio] 27.62 kg/m2 Juli Franklin [facility] [employer]. 04-21-2016 08:28-0400 Body surface area Derived from formula 1.83 m2 Gabrielle Reid LPN [employer] [facility], Inc.; [employer] 04-21-2016 08:28-0400 Body weight 75.3 kg Gabrielle Reid LPN [employer] [facility], Inc.; [employer] 04-21-2016 08:28-0400 Diastolic blood pressure 75 mm[Hg] Gabrielle Reid LPN [employer] 04-21-2016 08:28-0400 Heart rate 66 /min Gabrielle Reid LPN [employer] 04-21-2016 08:28-0400 Systolic blood pressure 119 mm[Hg] Gabrielle Reid LPN [employer] 12-23-2015 11:37-0500 Body height 165.1 cm Gabrielle Reid CARGO SERVICES COORDINATOR [employer] 12-23-2015 11:37-0500 Body mass index (BMI) [Ratio] 27.79 kg/m2 Gabrielle Reid CARGO SERVICES COORDINATOR [employer] 12-23-2015 11:37-0500 Body surface area Derived from formula 1.83 m2 Gabrielle Reid LPN [employer] 12-23-2015 11:37-0500 Body weight 75.75 kg Gabrielle Reid LPN [employer] 12-23-2015 11:37-0500 Diastolic blood pressure 82 mm[Hg] Gabrielle Reid CARGO SERVICES COORDINATOR [employer] 12-23-2015 11:37-0500 Heart rate 61 /min Gabrielle Reid LPN [employer] 12-23-2015 11:37-0500 Systolic blood pressure 146 mm[Hg] Gabrielle Reid CARGO SERVICES COORDINATOR [employer] 11-03-2015 12:39-0500 Body height 165.1 cm Candace Kayla Mcfarland LPN [employer] [facility], Inc.; [employer], [employer]. 11-03-2015 12:39-0500 Body mass index (BMI) [Ratio] 27.79 kg/m2 Candace Kayla Mcfarland LPN [employer] [facility], Inc.; [employer] 11-03-2015 12:39-0500 Body surface area Derived from formula 1.83 m2 Candace Mcfarland LPN [employer] [facility], Inc.; [employer] 11-03-2015 12:39-0500 Body weight 75.75 kg Candace Kayla Mcfarland LPN [employer], [employer]. 11-03-2015 12:39-0500 Diastolic blood pressure 69 mm[Hg] Candace Mcfarland LPN [employer] [facility], Inc.; [employer] 11-03-2015 12:39-0500 Heart rate 65 /min Candace Mcfarland LPN [employer] 11-03-2015 12:39-0500 Systolic blood pressure 127 mm[Hg] Candace Kayla Mcfarland LPN [employer], [employer]. 10-22-2015 09:14-0500 Body height 165.1 cm Lety K Mutersbaugh CARGO SERVICES COORDINATOR [employer] 10-22-2015 09:14-0500 Body mass index (BMI) [Ratio] 28.12 kg/m2 Lety K Mutersbaugh CARGO SERVICES COORDINATOR [employer] 10-22-2015 09:14-0500 Body surface area Derived from formula 1.84 m2 Lety K Mutersbaugh CARGO SERVICES COORDINATOR [employer], [employer]. 10-22-2015 09:14-0500 Body weight 76.66 kg Lety K Mutersbaugh CARGO SERVICES COORDINATOR [employer], [employer]. 10-22-2015 09:14-0500 Diastolic blood pressure 77 mm[Hg] Lety K Mutersbaugh CARGO SERVICES COORDINATOR [employer], [employer].; [employer]. 10-22-2015 09:14-0500 Heart rate 72 /min Lety Yuri Gerbaarielle CROSS [place] [employer] [facility] Center[facility].; [employer]. 10-22-2015 09:14-0500 Systolic blood pressure 124 mm[Hg] Lety K Janellersbaugh TAY [facility].; [employer] 09-29-2015 09:18-0500 Body height 165.1 cm Rola Patel RN [place] [employer] [facility] CenterPixel[facility].; [employer]. 09-29-2015 09:18-0500 Body mass index (BMI) [Ratio] 28.29 kg/m2 Rola Patel RN [place] [employer] [facility] Center[facility].; [employer]. 09-29-2015 09:18-0500 Body surface area Derived from formula 1.85 m2 Rola Patel RN [place] [employer] [facility].; [employer]. 09-29-2015 09:18-0500 Body temperature 98.2 [degF] Rola Patel RN [employer] [facility].; [employer]. 09-29-2015 09:18-0500 Body weight 77.11 kg Rola Patel RN [place] [employer] [facility].; [employer]. 09-29-2015 09:18-0500 Diastolic blood pressure 75 mm[Hg] Rola Patel RN [employer] [facility] Center[facility].; [employer]. 09-29-2015 09:18-0500 Heart rate 66 /min Rola Patel RN [employer].; [employer]. 09-29-2015 09:18-0500 Systolic blood pressure 129 mm[Hg] Rola Patel RN [employer].; [employer]. 05-22-2015 08:20-0400 Body height 160.02 cm Candace Mcfarland LPN [employer].; [employer]. 05-22-2015 08:20-0400 Body mass index (BMI) [Ratio] 29.41 kg/m2 Candace Kayla TejedaCarson CARGO SERVICES COORDINATOR [employer] [facility], Inc.; [employer] [facility]. 05-22-2015 08:20-0400 Body surface area Derived from formula 1.79 m2 Candace Kayla TejedaBruna CARGO SERVICES COORDINATOR [employer] [facility], Inc.; [employer] 05-22-2015 08:20-0400 Body weight 75.3 kg Candace Kayla Mcfarland CARGO SERVICES COORDINATOR [employer] [facility], Inc.; [employer] [facility]. 05-22-2015 08:20-0400 Diastolic blood pressure 70 mm[Hg] Candace Kayla TejedaCarson CARGO SERVICES COORDINATOR [employer] [facility], Inc.; [employer], [employer]. 05-22-2015 08:20-0400 Heart rate 68 /min Candace Kayla Mcfarland CARGO SERVICES COORDINATOR [employer] [facility], Inc.; [employer], [employer]. 05-22-2015 08:20-0400 Systolic blood pressure 109 mm[Hg] Candace Kayla TejedaCarson CARGO SERVICES COORDINATOR [employer], [facility]. 01-16-2015 08:41-0500 Body weight 77.57 kg Neilee L Vess CARGO SERVICES COORDINATOR [employer], [facility].; [employer], [employer]. 01-16-2015 08:41-0500 Diastolic blood pressure 64 mm[Hg] Neilee L Vess CARGO SERVICES COORDINATOR [employer] [facility], Inc.; [employer], [employer]. 01-16-2015 08:41-0500 Heart rate 73 /min Neilee L Vess CARGO SERVICES COORDINATOR [employer], [employer]. 01-16-2015 08:41-0500 Systolic blood pressure 122 mm[Hg] Neilee L Vess CARGO SERVICES COORDINATOR [employer] [facility].; [employer]. 10-30-2014 15:36-0500 Body height 160.02 cm Candace Kayla TejedaCarson CARGO SERVICES COORDINATOR [employer], [employer]. 10-30-2014 15:36-0500 Body mass index (BMI) [Ratio] 30.29 kg/m2 Candace Kayla TejedaCarson CARGO SERVICES COORDINATOR [employer], [employer]. 10-30-2014 15:36-0500 Body surface area Derived from formula 1.81 m2 Candace Kayla Mcfarland LPN [employer] [facility], Inc.; [employer] 10-30-2014 15:36-0500 Body weight 77.57 kg Candace Kayla Mcfarland CARGO SERVICES COORDINATOR [employer] [facility], Inc.; [employer] 10-30-2014 15:36-0500 Diastolic blood pressure 74 mm[Hg] Candace Kayla TejedaBruna CARGO SERVICES COORDINATOR [employer] [facility], Inc.; [employer] 10-30-2014 15:36-0500 Heart rate 71 /min Candace Kayla Mcfarland LPN [employer] [facility], Inc.; [employer] 10-30-2014 15:36-0500 Systolic blood pressure 125 mm[Hg] Candace Kayla TejedaBrnua CARGO SERVICES COORDINATOR [employer] 09-02-2014 09:58-0400 Body height 160.02 cm Candace Mcfarlnad CARGO SERVICES COORDINATOR [employer] [facility], Inc.; [employer] 09-02-2014 09:58-0400 Body mass index (BMI) [Ratio] 30.65 kg/m2 Candace Kayla Mcfarland CARGO SERVICES COORDINATOR [employer] 09-02-2014 09:58-0400 Body surface area Derived from formula 1.82 m2 Candace Kayla Mcfarland CARGO SERVICES COORDINATOR [employer] [facility], Inc.; [employer] 09-02-2014 09:58-0400 Body weight 78.47 kg Candace Kayla Mcfarland CARGO SERVICES COORDINATOR [employer] 09-02-2014 09:58-0400 Diastolic blood pressure 72 mm[Hg] Candace Kayla Mcfarland LPN [employer] 09-02-2014 09:58-0400 Heart rate 68 /min Candace Kayla Mcfarland CARGO SERVICES COORDINATOR [employer] 09-02-2014 09:58-0400 Systolic blood pressure 131 mm[Hg] Candace Kayla TejedaBruna CARGO SERVICES COORDINATOR [employer] 02-20-2014 09:06-0400 Body height 160.02 cm Carolina Barberach [facility].; [employer]. 02-20-2014 09:06-0400 Body mass index (BMI) [Ratio] 30.82 kg/m2 Carolina More [facility] [employer].; [employer] 02-20-2014 09:06-0400 Body surface area Derived from formula 1.82 m2 Carolina Gamblelabach [facility], Inc.; [employer] 02-20-2014 09:06-0400 Body weight 78.93 kg Carolina More [facility] [employer].; [employer]. 02-20-2014 09:06-0400 Diastolic blood pressure 81 mm[Hg] Carolina More [facility] [employer] [employer], [employer]. 02-20-2014 09:06-0400 Heart rate 68 /min Carolina More [facility] [employer], [employer]. 02-20-2014 09:06-0400 Systolic blood pressure 121 mm[Hg] Carolina More [facility] [employer], [employer]. 10-24-2013 08:45-0500 Body height 165.1 cm Carolina More [facility] [employer] 10-24-2013 08:45-0500 Body mass index (BMI) [Ratio] 28.79 kg/m2 Carolina More [facility] [employer] [employer] 10-24-2013 08:45-0500 Body surface area Derived from formula 1.86 m2 Carolina More [facility] [employer], [employer].; [employer]. 10-24-2013 08:45-0500 Body weight 78.47 kg Carolina More [facility] [employer].; [employer]. 10-24-2013 08:45-0500 Diastolic blood pressure 76 mm[Hg] Carolina Barberach [facility] [employer] [employer]. 10-24-2013 08:45-0500 Heart rate 72 /min Carolina More LPN [employer] [facility], Inc.; [employer] 10-24-2013 08:45-0500 Systolic blood pressure 136 mm[Hg] Carolina Shelly [facility] [facility], Inc.; [employer] 07-02-2013 18:27-0400 Body height 165.1 cm Candace Mcfarland LPN [employer] [facility], Inc.; [employer] 07-02-2013 18:27-0400 Body mass index (BMI) [Ratio] 29.45 kg/m2 Candace Mcfarland LPN [employer], [employer].; [employer] 07-02-2013 18:27-0400 Body surface area Derived from formula 1.88 m2 Candace Mcfarland LPN [employer].; [employer] 07-02-2013 18:27-0400 Body temperature 98 [degF] Candace Mcfarland LPN [employer] 07-02-2013 18:27-0400 Body weight 80.29 kg Candace Mcfarland LPN [employer].; [employer] 07-02-2013 18:27-0400 Diastolic blood pressure 73 mm[Hg] Candace Mcfarland LPN [employer] 07-02-2013 18:27-0400 Heart rate 70 /min Candace Mcfarland LPN [employer] 07-02-2013 18:27-0400 Systolic blood pressure 120 mm[Hg] Candace Mcfarland LPN [employer], [employer].; [employer], [employer]. 06-19-2013 10:11-0400 Body height 165.1 cm Candace Mcfarland LPN [employer], [employer].; [employer], [employer]. 06-19-2013 10:11-0400 Body mass index (BMI) [Ratio] 28.62 kg/m2 Candace Mcfarland LPN [employer], [employer].; [employer] 06-19-2013 10:110400 Body surface area Derived from formula 1.86 m2 Candace Mcfarland LPN [employer], [employer].; [employer] 06-19-2013 10:11-0400 Body temperature 98.2 [degF] Candace Mcfarland LPN [employer].; [employer] 06-19-2013 10:110400 Body weight 78.02 kg Candace Mcfarland LPN [employer] 06-19-2013 10:110400 Diastolic blood pressure 75 mm[Hg] Candace Mcfarland LPN [employer], [employer]. 06-19-2013 10:110400 Heart rate 69 /min Candace Mcfarland LPN [employer].; [employer]. 06-19-2013 10:110400 Systolic blood pressure 122 mm[Hg] Candace Mcfarland LPN [employer] 06-04-2013 10:36-0400 Body height 165.1 cm Anastasia Wong RN Work Phone: [employer]. 06-04-2013 10:36-0400 Body mass index (BMI) [Ratio] 28.46 kg/m2 Anastasia Wong RN Work Phone: [employer].; [employer]. 06-04-2013 10:36-0400 Body surface area Derived from formula 1.85 m2 Anastasia Wong RN Work Phone: [employer].; [employer]. 06-04-2013 10:36-0400 Body weight 77.57 kg Anastasia Wong RN Work Phone: [employer].; [employer]. 06-04-2013 10:36-0400 Diastolic blood pressure 79 mm[Hg] Anastasia Wong RN Work Phone: [employer].; [employer]. 06-04-2013 10:36-0400 Heart rate 65 /min Anastasia Wong RN Work Phone: [place] [employer] [facility], [facility].; [place] [employer] [facility], [facility]. 06-04-2013 10:36-0400 Systolic blood pressure 150 mm[Hg] Anastasia Wong RN Work Phone: [facility], [facility].; [place] [employer] [facility], [facility]. 04-16-2013 08:57-0400 Body height 165.1 cm Estrellita Castillo LPN [facility] [employer] [facility], Inc.; [employer] 04-16-2013 08:57-0400 Body mass index (BMI) [Ratio] 28.04 kg/m2 Estrellita Castillo LPN [place] [employer] [facility] [facility], [employer] [employer] 04-16-2013 08:57-0400 Body surface area Derived from formula 1.84 m2 Estrellita Castillo LPN [place] [employer] [facility], Inc.; [employer], [facility]. 04-16-2013 08:57-0400 Body weight 76.43 kg Estrellita Castillo LPN [facility] [employer] [facility], Inc.; [employer], [facility]. 04-16-2013 08:57-0400 Diastolic blood pressure 69 mm[Hg] Estrellita Castillo LPN [place] [employer] [facility], Inc.; [employer] 04-16-2013 08:57-0400 Heart rate 72 /min Estrellita Castillo LPN [facility] [employer] [facility], Inc.; [employer], [employer] 04-16-2013 08:57-0400 Systolic blood pressure 112 mm[Hg] Estrellita Castillo LPN [place] [facility], Inc.; [employer], [facility]. 01-01-2013 16:07-0500 Body height 165.1 cm Nalini Yan [employer] SERVICES COORDINATOR [place] [employer] [facility], Inc.; [employer], [employer] 01-01-2013 16:07-0500 Body mass index (BMI) [Ratio] 28.79 kg/m2 Nalini Yan CARGO SERVICES COORDINATOR [place] [facility], Inc.; [employer], [employer]. 01-01-2013 16:07-0500 Body surface area Derived from formula 1.86 m2 Nalini Hernandezert [facility] [employer] [facility], Inc.; [employer] 01-01-2013 16:07-0500 Body weight 78.47 kg Nalini Hernandezert CARGO SERVICES COORDINATOR [place] [facility] [facility], Inc.; [employer] 01-01-2013 16:07-0500 Diastolic blood pressure 74 mm[Hg] Nalini Hernandezert CARGO SERVICES COORDINATOR [place] [facility] [facility], Inc.; [employer], [employer] 01-01-2013 16:07-0500 Heart rate 79 /min Nalini Hernandezert CARGO SERVICES COORDINATOR [place] [facility], Inc.; [employer], [employer]. 01-01-2013 16:07-0500 Systolic blood pressure 132 mm[Hg] Nalini Hernandezert CARGO SERVICES COORDINATOR [place] [employer] [facility], Inc.; [employer] 12-20-2012 14:53-0500 Body height 165.1 cm Carolina Shelly Derik [facility] [employer] [facility], Inc.; [employer]. 12-20-2012 14:53-0500 Body mass index (BMI) [Ratio] 28.79 kg/m2 Carolina Bravo Derik [facility] [employer] [facility], Inc.; [employer], [employer]. 12-20-2012 14:53-0500 Body surface area Derived from formula 1.86 m2 Carolina Bravo Derik CARGO SERVICES COORDINATOR [employer] [facility], Inc.; [employer], [employer]. 12-20-2012 14:53-0500 Body weight 78.47 kg Carolina Bravo Derik [facility] [employer] [facility], Inc.; [employer]. 12-20-2012 14:53-0500 Diastolic blood pressure 75 mm[Hg] Carolina Bravo Derik CARGO SERVICES COORDINATOR [employer]. 12-20-2012 14:53-0500 Heart rate 78 /min Carolina Shelly More [employer] SERVICES COORDINATOR [place] [facility], Inc.; [employer], [employer]. 12-20-2012 14:53-0500 Systolic blood pressure 120 mm[Hg] Carolina Shelly More CARGO SERVICES COORDINATOR [employer]. 11-20-2012 09:28-0500 Body height 165.1 cm Nalinikevin Yan [facility], [facility].; [employer], [employer]. 11-20-2012 09:28-0500 Body mass index (BMI) [Ratio] 29.62 kg/m2 Nalini L Richert [facility], Inc.; [employer], [employer] 11-20-2012 09:28-0500 Body surface area Derived from formula 1.88 m2 [facility] L [facility], Inc.; [employer], Inc[employer] 11-20-2012 09:28-0500 Body weight 80.74 kg Nalinikevin Yan [facility], [facility].; [employer], [employer]. 11-20-2012 09:28-0500 Diastolic blood pressure 76 mm[Hg] Nalini Buck [facility] [employer] [facility], Inc.; [employer], [employer]. 11-20-2012 09:28-0500 Heart rate 68 /min Nalinikevin Yan [facility] [employer] [facility], [facility].; [employer], [employer]. 11-20-2012 09:28-0500 Systolic blood pressure 132 mm[Hg] Nalinikevin Yan [facility] [employer] [facility], [facility].; [employer], [facility]. 10-12-2012 10:37-0500 Body height 165.1 cm Candace Mcfarland [facility], [facility].; [employer], [employer]. 10-12-2012 10:37-0500 Body mass index (BMI) [Ratio] 29.62 kg/m2 Candace Mcfarland [facility] [employer] [facility], [facility].; [employer], [employer]. 10-12-2012 10:37-0500 Body surface area Derived from formula 1.88 m2 Candace Mcfarland [facility] [facility], [facility].; [employer], [employer]. 10-12-2012 10:37-0500 Body temperature 97.5 [degF] Candace Mcfarland [facility] [employer] [facility], [facility].; [employer], [employer]. 10-12-2012 10:37-0500 Body weight 80.74 kg Candace Mcfarland [facility] [facility], [facility].; [employer], [employer]. 10-12-2012 10:37-0500 Diastolic blood pressure 72 mm[Hg] Candace Mcfarland LPN [place] [facility], Inc.; [employer] 10-12-2012 10:37-0500 Heart rate 68 /min [facility], Inc.; [employer], [employer] 10-12-2012 10:37-0500 Systolic blood pressure 137 mm[Hg] Candace Mcfarland [facility] [employer] [facility], Inc.; [employer], [employer] 09-21-2012 10:36-0500 Body height 165.1 cm Carolina Shelly More [facility] [employer] [facility], Inc.; [employer], [employer]. 09-21-2012 10:36-0500 Body mass index (BMI) [Ratio] 29.29 kg/m2 Carolina Shelly More [facility] [employer] [facility], Inc.; [employer], [employer]. 09-21-2012 10:36-0500 Body surface area Derived from formula 1.87 m2 Carolina More CARGO SERVICES COORDINATOR [place] [facility], Inc.; [employer], [employer]. 09-21-2012 10:36-0500 Body weight 79.83 kg Carolina Shelly Derik [facility] [employer], [employer], [employer]. 09-21-2012 10:36-0500 Diastolic blood pressure 78 mm[Hg] Carolina Shelly More LPN [employer], [employer]. 09-21-2012 10:36-0500 Heart rate 71 /min Carolina More CARGO SERVICES COORDINATOR [employer] [facility], Inc.; [employer], [employer]. 09-21-2012 10:36-0500 Systolic blood pressure 145 mm[Hg] Carolina Shelly More LPN [employer], [employer]. 07-17-2012 11:38-0400 Body height 165.1 cm Candace Mcfarland CARGO SERVICES COORDINATOR [employer]. 07-17-2012 11:38-0400 Body mass index (BMI) [Ratio] 29.29 kg/m2 Candace Mcfarland CARGO SERVICES COORDINATOR [employer], [employer]. 07-17-2012 11:38-0400 Body surface area Derived from formula 1.87 m2 Candace Kayla Mcfarland LPN [place] [facility], Inc.; [employer], [employer] 07-17-2012 11:38-0400 Body temperature 98.1 [degF] Candace Kayla Mcfarland LPN [place] [facility] [facility], Inc.; [employer], [employer]. 07-17-2012 11:38-0400 Body weight 79.83 kg Candace Kayla Mcfarland LPN [employer] [facility], Inc.; [employer], [employer]. 07-17-2012 11:38-0400 Diastolic blood pressure 76 mm[Hg] Candacepankaj Mcfarland LPN [employer] [facility], Inc.; [employer], [employer]. 07-17-2012 11:38-0400 Heart rate 67 /min Candace Mcfarland LPN [employer] [facility], Inc.; [employer], [employer]. 07-17-2012 11:38-0400 Systolic blood pressure 133 mm[Hg] Candacepankaj Mcfarland LPN [employer] [facility], Inc.; [employer], [employer]. 05-18-2012 10:17-0400 Body height 165.1 cm Nalini Heber Richert [facility] [employer] [facility], Inc.; [employer], [employer]. 05-18-2012 10:17-0400 Body mass index (BMI) [Ratio] 29.12 kg/m2 Nalini L Richert [facility] [employer] [facility], Inc.; [employer], [employer]. 05-18-2012 10:17-0400 Body surface area Derived from formula 1.87 m2 Nalini L Richert CARGO SERVICES COORDINATOR [employer] [facility], [facility].; [employer], [employer]. 05-18-2012 10:17-0400 Body weight 79.38 kg Nalini L Richert CARGO SERVICES COORDINATOR [employer] [facility], Inc.; [employer], [employer]. 05-18-2012 10:17-0400 Diastolic blood pressure 66 mm[Hg] Nalini L Davidert CARGO SERVICES COORDINATOR [employer] [facility], Inc.; [employer], [employer]. 05-18-2012 10:17-0400 Heart rate 75 /min Nalini L Richert [facility] [employer] [facility], [employer].; [employer]. 05-18-2012 10:17-0400 Inhaled oxygen concentration 20 % Nalini Yan [facility], [facility].; [facility]. 05-18-2012 10:17-0400 SaO2% (BldA) [Mass fraction] 98 % Nalini Yan [facility], [facility].; [employer] [facility]. 05-18-2012 10:17-0400 Systolic blood pressure 117 mm[Hg] Nalini Yan [facility], [facility].; [place] [facility]. 11-18-2011 10:37-0500 Body height 165.1 cm Suzychan Holden [facility], [facility].; [place] [facility] [facility]. 11-18-2011 10:37-0500 Body mass index (BMI) [Ratio] 29.62 kg/m2 Suzy Ingrid Holden [facility], [facility].; [place] [facility]. 11-18-2011 10:37-0500 Body surface area Derived from formula 1.88 m2 Suzychan Holden [facility].; [employer] [facility]. 11-18-2011 10:37-0500 Body weight 80.74 kg Suzychan Holden [facility] [employer] [facility], [facility].; [employer] [facility]. 11-18-2011 10:37-0500 Diastolic blood pressure 65 mm[Hg] Suzy Ingrid AguilarSawyerville [facility] [employer] [facility], [facility].; [employer] [facility]. 11-18-2011 10:37-0500 Heart rate 70 /min Suzychan Holden [facility] [employer] [facility], [facility].; [employer] [facility]. 11-18-2011 10:37-0500 Systolic blood pressure 113 mm[Hg] Suzy Ingrid AguilarNavin [facility], [facility].; [place] [facility]. 05-12-2011 15:40-0400 Body height 165.1 cm Suzy Ingrid Holden [facility] [employer] [facility], [facility].; [employer] [facility]. 05-12-2011 15:40-0400 Body mass index (BMI) [Ratio] 28.59 kg/m2 Suzy Ingrid Navin [facility].; [employer] [facility]. 05-12-2011 15:40-0400 Body surface area Derived from formula 1.85 m2 Suzy Ingrid AguilarNavin CARGO SERVICES COORDINATOR [employer] 05-12-2011 15:40-0400 Body weight 77.93 kg Suzy Holden CARGO SERVICES COORDINATOR [employer] 05-12-2011 15:40-0400 Diastolic blood pressure 68 mm[Hg] Suzy Ingrid AguilarNavin CARGO SERVICES COORDINATOR [employer] 05-12-2011 15:40-0400 Heart rate 71 /min Suzy Ingrid AguilarNavin CARGO SERVICES COORDINATOR [employer] 05-12-2011 15:40-0400 Systolic blood pressure 103 mm[Hg] Suzy Ingrid AguilarNavin CARGO SERVICES COORDINATOR [employer] 11-09-2010 11:08-0500 Body weight 78.38 kg Nalini L Yuriy [facility] [employer] 11-09-2010 11:08-0500 Diastolic blood pressure 76 mm[Hg] Nalini Heber Richert CARGO SERVICES COORDINATOR [employer] 11-09-2010 11:08-0500 Heart rate 70 /min Nalini Heber Hernandezert CARGO SERVICES COORDINATOR [employer] 11-09-2010 11:08-0500 Systolic blood pressure 128 mm[Hg] Nalini L Davidert CARGO SERVICES COORDINATOR [employer] Encounters Encounter Date Encounter Type Care Provider Facility Start: 12-21-2023 End: 12-21-2023 Antione Ocampo MD Work Phone: [employer]. Start: 10-24-2023 End: 10-24-2023 Office outpatient visit 25 minutes Antione Ocampo MD Work Phone: [employer]. Start: 09-08-2023 End: 09-08-2023 Antione Ocampo MD Work Phone: [employer]. Start: 08-01-2023 End: 08-01-2023 Antione Ocampo MD Work Phone: [employer] Start: 08-01-2023 End: 08-01-2023 Antione Ocampo MD Work Phone: [employer] Start: 07-20-2023 End: 07-20-2023 Antione Ocampo MD Work Phone: [employer] Start: 06-23-2023 End: 06-23-2023 Periodic preventive med est patient 65yrs& older Antione Ocampo MD Work Phone: [employer] Start: 06-21-2023 End: 06-21-2023 Antione Ocampo MD Work Phone: [employer] Start: 06-12-2023 End: 06-12-2023 Antione Ocampo MD Work Phone: [employer] Start: 06-09-2023 End: 06-09-2023 Office outpatient visit 15 minutes Antione Ocampo MD Work Phone: [employer] Start: 05-30-2023 End: 05-30-2023 Antione Ocampo MD Work Phone: [employer] Start: 05-11-2023 End: 05-11-2023 ambulatory ANTIONE OCAMPO Facility:[facility] Start: 04-09-2023 End: 04-09-2023 ambulatory [facility] Facility:[facility] Start: 04-09-2023 End: 04-09-2023 Patient encounter procedure Mickey PHILLIPS Work Phone: [facility] Procedures Date Procedure Procedure Detail Performing Clinician Start: 10-24-2023 End: 10-24-2023 Gabrielle Garza Start: 09-08-2023 End: 09-08-2023 Flu immunize order/admin Antione Marques Work Phone: Start: 08-11-2023 End: 08-11-2023 Examination of retina Gabrielle Reid LPN Start: 06-23-2023 End: 06-23-2023 Adv care pln/ no alt dcsn mkr docd or refusal Antioen Ocampo MD Work Phone: Start: 06-23-2023 End: 06-23-2023 Depression screening Antione Ocampo MD Work Phone: Start: 06-23-2023 End: 06-23-2023 Falls risk assessment documented Antione Ocampo MD Work Phone: Start: 06-23-2023 End: 06-23-2023 PPPS, subseq visit Antione Ocampo MD Work Phone: Start: 06-23-2023 End: 06-23-2023 Pt falls assess docd w/o fall/injury past year Antione Ocampo MD Work Phone: Start: 06-23-2023 End: 06-23-2023 Scr dep neg, no plan reqd Antione Ocampo MD Work Phone: Start: 06-16-2023 End: 06-16-2023 Lab findings surveillance Gabrielle toney CARGO SERVICES COORDINATOR Start: 06-16-2023 End: 06-16-2023 Gabrielle Reid LP N Start: 04-09-2023 Gluc bld gluc mntr d ev cleared fda spec home use [facility] Provider Start: 04-09-2023 Urnls dip stick/tabl et rgnt auto w/o microscopy Mickey PHILLIPS Work Phone: Start: 01-27-2023 End: 01-27-2023 Mammography Julio Azevedo MD Work Phone: Start: 01-11-2023 End: 01-11-2023 Screening mammography Gabrielle Reid CARGO SERVICES COORDINATOR Start: 08-19-2022 End: 08-19-2022 Flu immunize order/admin Antione Marques Work Phone: Start: 06-01-2022 End: 06-01-2022 Screening colonoscopy Gabrielle Reid CARGO SERVICES COORDINATOR Start: 04-14-2022 End: 04-14-2022 Dexamethasone sodium phos Antione Ocampo MD Work Phone: Start: 03-02-2022 End: 03-02-2022 Depression screening Antione Ocampo MD Work Phone: Start: 03-02-2022 End: 03-02-2022 Falls risk assessment documented Antione Ocampo MD Work Phone: Start: 03-02-2022 End: 03-31-2022 Oncology colorectal screening dinorah 10 dna markrs Antione Ocampo MD Work Phone: Start: 03-02-2022 End: 03-02-2022 Pos clin depres scrn f/u doc Antione zelaya MD Work Phone: Start: 03-02-2022 End: 03-02-2022 PPPS, subseq visit Antione Ocampo MD Work Phone: Start: 03-02-2022 End: 03-02-2022 Pt falls assess docd w/o fall/injury past year Antione Ocampo MD Work Phone: Start: 08-18-2021 End: 08-18-2021 Flu immunize order/admin Antione Marques Work Phone: Start: 10-14-2020 End: 10-14-2020 Depression screening Esperanza Ng MD Work Phone: Start: 10-14-2020 End: 10-14-2020 Falls risk assessment documented Esperanza Ng MD Work Phone: Start: 10-14-2020 End: 10-14-2020 PPPS, subseq visit Esperanza Ng MD Work Phone: Start: 10-14-2020 End: 10-14-2020 Pt falls assess docd w/o fall/injury past year Esperanza Ng MD Work Phone: Start: 10-14-2020 End: 10-14-2020 Scr dep neg, no plan reqd Esperanza Ng MD Work Phone: Start: 08-13-2020 End: 08-13-2020 Flu immunize order/admin FLOAT NURSE Start: 05-07-2020 End: 05-11-2020 Radex fingr minimum 2 views Esperanza quevedo MD Work Phone: Start: 03-19-2020 End: 03-19-2020 Most recent hg a1c>equal to 7.0%&<8.0% Esperanza Ng MD Work Phone: Start: 09-19-2019 End: 09-19-2019 Depression screening Esperanza Ng MD Work Phone: Start: 09-19-2019 End: 09-19-2019 Falls risk assessment documented Esperanza Ng MD Work Phone: Start: 09-19-2019 End: 09-19-2019 Flu imm no admin doc felisha Esperanza Marques Work Phone: Start: 09-19-2019 End: 09-19-2019 Flu immunize order/admin Esperanza Marques Work Phone: Start: 09-19-2019 End: 09-19-2019 Foot examination performed Esperanza Ng MD Work Phone: Start: 09-19-2019 End: 09-19-2019 Most recent hemoglobin a1c level gt 7.0-9.0 % Esperanza Ng MD Work Phone: Start: 09-19-2019 End: 09-19-2019 PPPS, subseq visit Esperanza Ng MD Work Phone: Start: 09-19-2019 End: 09-19-2019 Pt falls assess docd w/o fall/injury past year Esperanza Ng MD Work Phone: Start: 09-19-2019 End: 09-19-2019 Scr dep neg, no plan reqd Esperanza Ng MD Work Phone: Start: 03-14-2019 End: 03-14-2019 Most recent hemoglobin a1c level gt 7.0-9.0 % Esperanza Ng MD Work Phone: Start: 11-15-2018 End: 11-15-2018 Most recent hemoglobin a1c level gt 7.0-9.0 % Esperanza Ng MD Work Phone: Start: 11-15-2018 End: 11-15-2018 Negative microalbuminuria test result doc&rev Esperanza Ng MD Work Phone: Start: 11-08-2018 End: 11-08-2018 Gabrielle Reid LP N Start: 05-17-2018 End: 05-17-2018 Most recent hemoglobin a1c level gt 7.0-9.0 % Esperanza Ng MD Work Phone: Start: 01-19-2018 End: 01-19-2018 Body mass index documented Antione Ocampo MD Work Phone: Start: 12-12-2017 End: 12-12-2017 Body mass index documented Rola Marques Steven cervantes PA-C Work Phone: Start: 11-30-2017 End: 12-08-2017 Depression screen annual Esperanza Marques Work Phone: Start: 11-30-2017 End: 12-08-2017 Falls risk assessment documented Esperanza Ng MD Work Phone: Start: 11-07-2017 End: 11-07-2017 Body mass index documented Antione Ocampo MD Work Phone: Start: 07-27-2017 End: 07-31-2017 Radex shoulder complete minimum 2 views Esperanza Ng MD Work Phone: Start: 04-25-2017 End: 04-25-2017 PPPS, subseq visit Esperanza Ng MD Work Phone: Start: 04-25-2017 End: 04-25-2017 Scr dep neg, no plan reqd Esperanza Ng MD Work Phone: Start: 04-25-2017 End: 05-03-2017 Duplex scan extracranial art compl bi study Esperanza Ng MD Work Phone: Start: 04-25-2017 End: 04-25-2017 Falls risk assessment documented Esperanza Ng MD Work Phone: Start: 04-25-2017 End: 04-25-2017 Depression screen annual Esperanza Marques Work Phone: Start: 12-22-2016 End: 12-22-2016 Arthrocentesis aspir&/inj interm jt/burs w/o us Esperanza Ng MD Work Phone: Start: 10-20-2016 End: 10-20-2016 Dilated retinal exam w/evidence of retinopathy Candace Mcfarland CARGO SERVICES COORDINATOR Start: 10-20-2016 End: 10-20-2016 Flu immunize order/admin Candace Powers kimberlee CARGO SERVICES COORDINATOR Start: 10-20-2016 End: 10-20-2016 Most recent hemoglobin a1c level gt 7.0-9.0 % Candace Mcfarland CARGO SERVICES COORDINATOR Start: 09-14-2016 Colonoscopy Mammograph y Coordinator Start: 06-16-2016 End: 06-16-2016 Removal impacted cerumen instrumentation isaat Esperanza Ng MD Work Phone: Start: 05-30-2016 End: 05-30-2016 Ophthalmic examination and evaluation Toby Mcadams CARGO SERVICES COORDINATOR Start: 11-03-2015 End: 11-03-2015 Removal impacted cerumen instrumentation isaat Esperanza Ng MD Work Phone: Start: 06-13-2013 End: 06-14-2013 Ct head/brain w/o & w/contrast material Johnnie Moreira MD Work Phone: Start: 06-04-2013 End: 06-04-2013 Removal impacted cerumen instrumentation isaat Carolina Abraham MD Work Phone: Start: 01-01-2013 End: 01-04-2013 Mri brain brain stem w/o w/contrast material Esperanza Ng MD Work Phone: Start: 09-28-2012 End: 09-28-2012 Removal sutures under anesthesia same surgeon Esperanza Ng MD Work Phone: Start: 09-21-2012 End: 11-17-2012 Incision & removal foreign body subq tiss simple Esperanza Ng MD Work Phone: Start: 11-18-2011 End: 11-18-2011 Juli Franklin LORA N Start: 04-13-2011 Lipid 1996 panel - S tommy or Plasma Screen Wstr Start: 11-13-2010 End: 11-13-2010 Dee Wen MA Start: 11-13-2009 End: 11-13-2009 Cataract surgery Toby Mcadams [employer] SERVICES COORDINATOR Ligation of fallopian tube A rylan Abbe CARGO SERVICES COORDINATOR Tonsillectomy Toby Buck PN Toby Mcadams LP N Plan of Treatment Date Care Activity Detail Author Start: 05-11-2024 BP Controlled (<130/80) BP Controlled (<130/80) [facility] Start: 05-03-2024 [facility] Start: 04-26-2024 [facility] Start: 01-28-2024 Mammography [facility] Start: 07-14-2023 Covid-19 Vaccine () Covid-19 Vaccine () [facility] Start: 07-14-2023 Influenza vaccination Influenza Vaccine (#1) [facility] Start: 11-13-2022 ADVANCE DIRECTIVE DISCUSSION ADVANCE DIRECTIVE DISCUSSION [facility] Start: 11-13-2022 DEPRESSION ASSESSMENT DEPRESSION ASSESSMENT [facility] Start: 03-02-2022 Adv care pln/ no alt dcsn mkr docd or refusal [facility] Start: 09-14-2021 Colonoscopy COLONOSCOPY [facility] Start: 09-14-2021 COLORECTAL CANCER SCREENING COLORECTAL CANCER SCREENING [facility] Start: 02-08-2020 Shingrix Vaccine (2 of 2) Shingrix Vaccine (2 of 2) [facility] Start: 04-13-2016 Lipid 1996 panel - Serum or Plasma Lipid Screening [facility] Start: 04-13-2016 LIPID SCREEN LIPID SCREEN [facility] Start: 2014 BONE DENSITY BONE DENSITY [facility] Start: 2014 Bone Density Screening Bone Density Screening [facility] Start: 2014 Pneumococcal Vaccine: 65+ (1 - PCV) Pneumococcal Vaccine: 65+ (1 - PCV) [facility] Start: 2014 PNEUMOCOCCAL: 65+ (1 - PCV) PNEUMOCOCCAL: 65+ (1 - PCV) [facility] Start: 2009 RSV Vaccine (1 - 1-dose 60+ series) RSV Vaccine (1 - 1-dose 60+ series) [facility] Start: 1999 SHINGRIX VACCINE (1 of 2) SHINGRIX VACCINE (1 of 2) [facility] Start: 1994 COLOGUARD (FIT-DNA) COLOGUARD (FIT-DNA) [facility] Start: [address] COLONOGRAPHY [facility] Start: 1994 DIABETES SCREEN DIABETES SCREEN [facility] Start: 1994 Diabetes Screening Diabetes Screening [facility] Start: 1994 FECAL OCCULT BLOOD FECAL OCCULT BLOOD [facility] Start: 1994 SIGMOIDOSCOPY SIGMOIDOSCOPY [facility] Start: 1968 Urine microalbumin profile [facility] Start: 1967 ANNUAL PCP TEAM CHRONIC DISEASE VISIT ANNUAL PCP TEAM CHRONIC DISEASE VISIT [facility] Start: 1967 BP CONTROLLED (<130/80) BP CONTROLLED (<130/80) [facility] Start: 1967 HEPATITIS C SCREENING HEPATITIS C SCREENING [facility] Bacteria identified in Urine by Culture URINE CULTURE Microbiology Routine Urinary frequency Ordered: 04/09/2023 [facility] Work Phone: Immunizations Immunization Date Immunization Notes Care Provider Fa cilicaleb 09-08-2023 influenza virus vaccine, unspecified formulation Antione Ocampo MD Work Phone: [facility].; [employer] [facility]. 09-08-2023 influenza, injectabl e, quadrivalent, preservative free Antione Ocampo MD Work Phone: [employer] 08-19-2022 influenza, injectabl e, quadrivalent, contains preservative Antione Ocampo MD Work Phone: [facility] [employer]. 08-19-2022 influenza virus vaccine, unspecified formulation Screen Wstr [facility] [employer]. 09-13-2021 Antione Ocampo MD Work Phone: [employer] 08-18-2021 influenza virus vaccine, unspecified formulation Antione Ocampo MD Work Phone: [employer] 08-18-2021 influenza, injectabl e, quadrivalent, contains preservative Antione Ocampo MD Work Phone: [employer] 01-21-2021 Antione Ocampo MD Work Phone: [facility] [employer] 12-24-2020 Antione Ocampo MD Work Phone: [employer] Work Phone: 08-13-2020 influenza virus vaccine, unspecified formulation Antione Ocampo MD Work Phone: [facility] [employer] 08-13-2020 influenza, injectabl e, quadrivalent, contains preservative Antione Ocampo MD Work Phone: [employer] 12-14-2019 zoster vaccine recombinant Antione Ocampo MD Work Phone: [employer]. 09-19-2019 pneumococcal polysaccharide vaccine, 23 valent Antione Ocampo MD Work Phone: [employer] 09-10-2019 zoster vaccine recombinant Antione Ocampo MD Work Phone: [employer] 08-27-2019 influenza, high dose seasonal, preservative-free Antione Ocampo MD Work Phone: [employer] 03-14-2019 Shingrix (PF) Antione Ocampo MD Work Phone: [employer]. 08-10-2018 influenza, high dose seasonal, preservative-free Mammography Coordinator [facility] 08-30-2017 influenza, injectabl e, quadrivalent, contains preservative Antione Ocampo MD Work Phone: [employer] 07-14-2016 influenza, seasonal, injectable Antione Ocampo MD Work Phone: [employer] 09-29-2015 Antione Ocampo MD Work Phone: [employer] 09-29-2015 influenza, seasonal, injectable Antione Ocampo MD Work Phone: [facility]; [facility] 05-22-2015 pneumococcal conjuga te vaccine, 13 valent Antione Ocampo MD Work Phone: [facility] 09-02-2014 influenza virus vaccine, unspecified formulation Antione Ocampo MD Work Phone: [facility].; [facility] 09-02-2014 Antione Ocampo MD Work Phone: [facility].; [facility] 09-02-2014 influenza, seasonal, injectable Antione Ocampo MD Work Phone: [facility].; [facility] 08-13-2013 influenza, seasonal, injectable Antione Ocampo MD Work Phone: [facility].; [facility] 05-09-2013 zoster vaccine, live Antione malik MD Work Phone: [facility]; [facility] 11-18-2011 tetanus toxoid, redu eulalia diphtheria toxoid, and acellular pertussis vaccine, adsorbed Antione Ocampo MD Work Phone: [facility]; [facility] 09-13-2011 influenza, seasonal, injectable Antione Ocampo MD Work Phone: [facility].; [facility] 09-13-2011 pneumococcal Conjuga te, unspecified formulation Antione Ocampo MD Work Phone: [facility]; [facility] 09-13-2011 pneumococcal polysaccharide vaccine, 23 valent Antione Ocampo MD Work Phone: [facility].; [facility] 09-08-2010 influenza, seasonal, injectable Antione Ocampo MD Work Phone: [facility].; [facility] 09-08-2010 Antione Ocampo MD Work Phone: [facility].; [place] [employer] [facility] 08-13-2004 pneumococcal polysaccharide vaccine, 23 valent Antione Ocampo MD Work Phone: [facility].; [place] [employer] [facility] Payers Date Payer Category Payer Medicare [id number] 2019 Unknown [id number] 1950 Unknown [id number] Social History Date Type Detail Facility Start: 01-18-2013 Tobacco smoking stat us MSIS Never smoked tobacco [facility] Start: 01-18-2013 Tobacco use and exposure Smokeless tobacco non-user [facility] Start: 01-14-2022 Alcohol intake Current drinke r of alcohol (finding) [facility] Start: 1950 Sex Assigned At Not on file [facility] Start: 10-18-2020 End: 01-14-2022 History of Social function [facility] [employer] Start: 10-18-2020 End: 01-14-2022 Tobacco use panel [facility] National Score (1-100), lower number is lower risk Not on file [facility] Occasional alcohol use. [facility] [employer] [facility].; [employer]. Retired. [employer] [facility], [employer]. Never smoker. [employer], [employer]. Clinical Notes 09-14-2016 to 05-11-2023 JACQUELINE Huffman - 04/09/2023 12:29 PM Just[employer] - Mammography Coordinator - 01/30/2023 2:03 PM Jie Chaparro RT(R) - 01/27/2023 2:10 PM EDT Note Date & Type Note Facility 05-11-2023 Note HNO ID: [id number] Author: Julio Azevedo MD Service: ? Author Type: Physician Type: Progress Notes Filed: 05/11/2023 1:35 PM Note Text: Belkys is a 72 year old who presents for an annual gynecologic exam without complaints. Postmenopausal: Yes HRT use: No. Last Pap: 12/21/2011 normal HPV: 12/21/2011 negative History of abnormal pap: No Last mammogram: 2022 pending OB History T0 L3 SAB0 IAB0 Ectopic0 Multiple0 Live Births0 Comment: 3 vaginal deliveries Capacity Management Specialist History LMP: 03/17/2005, Postmenopausal Age at Menarche: Age at First : Age at Menopause: Capacity Management Specialist History Comments: Sexual Activity: Yes; Male Contraception: Tubal Ligation PAST MEDICAL HISTORY Diagnosis Date Contact dermatitis 2018 Essential hypertension, benign High cholesterol Type II diabetes mellitus (HCC) UTI (urinary tract infection) x2 in 2018 PAST SURGICAL HISTORY Procedure Laterality Date COLONOSCOPY FLX DX W/COLLJ SPEC WHEN PFRMD 09/14/16 Colonoscopy (MAC) LIG/TRNSXJ FLP TUBE ABDL/VAG APPR UNI/BI PAST SURGICAL HISTORY OF 01/05/13 subdural hematomas FAMILY HISTORY Problem Relation Age of Onset Diabetes Son Cancer Maternal Aunt Cancer Maternal Aunt Cancer Maternal Aunt Hypertension Maternal Grandfather stroke Aneurysm Father abdominal SOCIAL HISTORY Social History Tobacco Use Smoking status: Never Smokeless tobacco: Never Vaping Use Vaping Use: Never used Substance Use Topics Alcohol use: Yes Comment: rarely Drug use: No REVIEW OF SYSTEMS Abdomen: No abdominal pain, nausea, vomiting, diarrhea, or constipation. No bloating, early satiety, indigestion, or increased flatulence. Bladder: No dysuria, gross hematuria, urinary frequency, urinary urgency, or incontinence Breast: No breast lumps, nipple d/c, overlying skin changes, redness or skin retraction Allergies and current medication updated:Yes EXAM: BP 98/52 Ht 5' 4 [with shoes[ (1.63m) Wt 152 lb (68.9kg) LMP 03/17/2005 BMI 26.08 kg/(m2). GENERAL: pleasant, female in no apparent distress HEENT: Normocephalic, atraumatic, mucus membranes moist, and no lesions NECK: Supple, full range of motion, no adenopathy, and thyroid normal DERMATOLOGY: Normal, without lesions, non-icteric, and non-hirsute BREAST: soft, non-tender, symmetric, no dominant mass, normal nipple-areolar complex, no lymphadenopathy, and no nipple discharge CHEST: Normal inspiratory effort ABDOMEN: soft, non-tender, and no masses PELVIC: external genitalia normal, normal Bartholin's glands, urethra, Tolley's glands, no vulvar lesions, no cervical lesions, physiologic discharge present, normal appearing perineal body and perianal region, cystocele 1st degree, rectocele 1st degree, flattened atrophic epithelium BIMANUAL: uterus normal size, shape and consistency, no adnexal masses, and non-tender RECTOVAGINAL: deferred. NEURO: alert and oriented x3,exam grossly non-focal EXTREMITIES: normal ASSESSMENT/PLAN: 1) Health maintenance: Pap/HPV up to date. Mammogram ordered 2) Follow up one year or sooner as needed Julio Azveedo MD [facility] 04-09-2023 Note HNO ID: [id number] Author: JACQUELINE Huffman Service: ? Author Type: Physician Operations And Maintenance Specialist Type: Progress Notes Filed: 04/09/2023 12:41 PM Note Text: This note was created using Sailogy[employer]. Subjective Belkys Almaraz is a 72 year old female. HPI 72-year-old female presents for UTI symptoms. Patient started getting urinary urgency and frequency yesterday. No blood in the urine. No abdominal pain or back pain. No vomiting or fevers. She has had UTIs in the past and this feels similar. She has taken Azo. She states her sugars have been okay at home. She last took her glucose yesterday evening. She was recently started on Farxiga for her diabetes. PAST MEDICAL HISTORY Diagnosis Date Contact dermatitis 2018 Essential hypertension, benign High cholesterol Type II diabetes mellitus (HCC) UTI (urinary tract infection) x2 in 2018 PAST SURGICAL HISTORY Procedure Laterality Date COLONOSCOPY FLX DX W/COLLJ SPEC WHEN PFRMD 09/14/16 Colonoscopy (MAC) LIG/TRNSXJ FLP TUBE ABDL/VAG APPR UNI/BI PAST SURGICAL HISTORY OF 01/05/13 subdural hematomas ALLERGIES Aspirin and Sulfa (Sulfonamide Antibiotics) MEDICATIONS ascorbic acid (VITAMIN C ORAL) Take by mouth. cholecalciferol, vitamin D3, (VITAMIN D3 ORAL) Take by mouth. JANUVIA 100 mg tablet BIOTIN ORAL Take by mouth. pravastatin 20 mg ORAL tablet Take 1 tablet by mouth once daily. metformin hcl(GLUCOPHAGE 500 MG TAB) Takes 1 at lunch and 2 at supper calcium carbonate/vitamin d3(CALCIUM 500 WITH VITAMIN D 500 MG-125 UNIT TAB) Take one(1) tablet twice daily. omega-3 fatty acids(FISH OIL 500 MG CAP) Take one(1) capsule daily. MULTIVITAMIN TAB Take one(1) tablet daily. cinnamon bark(CINNAMON 500 MG CAP) LISINOPRIL 5 MG TAB FARXIGA 5 mg tablet FAMILY HISTORY Problem Relation Age of Onset Diabetes Son Cancer Maternal Aunt Cancer Maternal Aunt Cancer Maternal Aunt Hypertension Maternal Grandfather stroke Aneurysm Father abdominal Social History Tobacco Use Smoking status: Never Smokeless tobacco: Never Vaping Use Vaping Use: Never used Substance Use Topics Alcohol use: Yes Comment: rarely Drug use: No Review of Systems Constitutional: Negative for chills and fever. HENT: Negative for congestion, ear pain and sore throat. Respiratory: Negative for cough and shortness of breath. Cardiovascular: Negative for chest pain. Gastrointestinal: Negative for diarrhea and vomiting. Genitourinary: Positive for dysuria, frequency and urgency. Negative for hematuria and pelvic pain. Objective BP 124/80 Pulse 70 Temp 36.6 ?C (97.8 ?F) Resp 16 Wt 70.8 kg (156 lb) LMP 03/17/2005 SpO2 95% BMI 26.78 kg/m? Physical Exam Vitals and nursing note reviewed. Constitutional: General: She is not in acute distress. Appearance: Normal appearance. She is not toxic-appearing. HENT: Nose: Nose normal. Mouth/Throat: Mouth: Mucous membranes are moist. Eyes: Conjunctiva/sclera: Conjunctivae normal. Cardiovascular: Rate and Rhythm: Normal rate and regular rhythm. Pulmonary: Effort: Pulmonary effort is normal. Breath sounds: Normal breath sounds. Abdominal: General: Abdomen is flat. Palpations: Abdomen is soft. Tenderness: There is no abdominal tenderness. There is no right CVA tenderness or left CVA tenderness. Skin: General: Skin is warm and dry. Neurological: Mental Status: She is alert. Assessment and Plan ASSESSMENT/PLAN: 1. Urinary frequency - ICD9: 788.41, ICD10: R35.0 (primary diagnosis) - UA positive for nitrates and glucose - Send urine for culture - Begin treatment with Keflex for 7 days - Patient education for prevention given - UA DIP, URINE (POC) - URINE CULTURE - GLUCOSE, BLOOD (POC) 2. Glucosuria - ICD9: 791.5, ICD10: R81 - GLUCOSE, BLOOD (POC) - Glucose 140 -Patient recently started on Farxiga, likely glucosuria due to elimination of glucose with medication. -Glucose 140 here, nonfasting. No other signs or symptoms concerning for DKA. Also has taken AZO. -Advised to continue monitoring blood glucose levels at home. If they are significantly elevated from her baseline, she develops vomiting, abdominal pain, or fevers, she needs to go to ER. Diagnosis and treatment plan were discussed and questions were answered to the patient's satisfaction. Pt acknowledged understanding of concepts and follow up plan. Specific signs and symptoms that would indicate the need for higher level of care were discussed in detail warranting prompt ER evaluation. JACQUELINE Huffman [facility] 04-09-2023 History of Presen t illness Narrative This note was created using VB Rags. Subjective Belkys Almaraz is a 72 year old female. HPI 72-year-old female presents for UTI symptoms. Patient started getting urinary urgency and frequency yesterday. No blood in the urine. No abdominal pain or back pain. No vomiting or fevers. She has had UTIs in the past and this feels similar. She has taken Azo. She states her sugars have been okay at home. She last took her glucose yesterday evening. She was recently started on Farxiga for her diabetes. PAST MEDICAL HISTORY Diagnosis Date Contact dermatitis 2018 Essential hypertension, benign High cholesterol Type II diabetes mellitus (HCC) UTI (urinary tract infection) x2 in 2018 PAST SURGICAL HISTORY Procedure Laterality Date COLONOSCOPY FLX DX W/COLLJ SPEC WHEN PFRMD 09/14/16 Colonoscopy (MAC) LIG/TRNSXJ FLP TUBE ABDL/VAG APPR UNI/BI PAST SURGICAL HISTORY OF 01/05/13 subdural hematomas ALLERGIES Aspirin and Sulfa (Sulfonamide Antibiotics) MEDICATIONS ascorbic acid (VITAMIN C ORAL) Take by mouth. cholecalciferol, vitamin D3, (VITAMIN D3 ORAL) Take by mouth. JANUVIA 100 mg tablet BIOTIN ORAL Take by mouth. pravastatin 20 mg ORAL tablet Take 1 tablet by mouth once daily. metformin hcl(GLUCOPHAGE 500 MG TAB) Takes 1 at lunch and 2 at supper calcium carbonate/vitamin d3(CALCIUM 500 WITH VITAMIN D 500 MG-125 UNIT TAB) Take one(1) tablet twice daily. omega-3 fatty acids(FISH OIL 500 MG CAP) Take one(1) capsule daily. MULTIVITAMIN TAB Take one(1) tablet daily. cinnamon bark(CINNAMON 500 MG CAP) LISINOPRIL 5 MG TAB FARXIGA 5 mg tablet FAMILY HISTORY Problem Relation Age of Onset Diabetes Son Cancer Maternal Aunt Cancer Maternal Aunt Cancer Maternal Aunt Hypertension Maternal Grandfather stroke Aneurysm Father abdominal Social History Tobacco Use Smoking status: Never Smokeless tobacco: Never Vaping Use Vaping Use: Never used Substance Use Topics Alcohol use: Yes Comment: rarely Drug use: No Review of Systems Constitutional: Negative for chills and fever. HENT: Negative for congestion, ear pain and sore throat. Respiratory: Negative for cough and shortness of breath. Cardiovascular: Negative for chest pain. Gastrointestinal: Negative for diarrhea and vomiting. Genitourinary: Positive for dysuria, frequency and urgency. Negative for hematuria and pelvic pain. Objective BP 124/80 Pulse 70 Temp 36.6 C (97.8 F) Resp 16 Wt 70.8 kg (156 lb) LMP 03/17/2005 SpO2 95% BMI 26.78 kg/m Physical Exam Vitals and nursing note reviewed. Constitutional: General: She is not in acute distress. Appearance: Normal appearance. She is not toxic-appearing. HENT: Nose: Nose normal. Mouth/Throat: Mouth: Mucous membranes are moist. Eyes: Conjunctiva/sclera: Conjunctivae normal. Cardiovascular: Rate and Rhythm: Normal rate and regular rhythm. Pulmonary: Effort: Pulmonary effort is normal. Breath sounds: Normal breath sounds. Abdominal: General: Abdomen is flat. Palpations: Abdomen is soft. Tenderness: There is no abdominal tenderness. There is no right CVA tenderness or left CVA tenderness. Skin: General: Skin is warm and dry. Neurological: Mental Status: She is alert. Assessment and Plan ASSESSMENT/PLAN: 1. Urinary frequency - ICD9: 788.41, ICD10: R35.0 (primary diagnosis) - UA positive for nitrates and glucose - Send urine for culture - Begin treatment with Keflex for 7 days - Patient education for prevention given - UA DIP, URINE (POC) - URINE CULTURE - GLUCOSE, BLOOD (POC) 2. Glucosuria - ICD9: 791.5, ICD10: R81 - GLUCOSE, BLOOD (POC) - Glucose 140 -Patient recently started on Farxiga, likely glucosuria due to elimination of glucose with medication. -Glucose 140 here, nonfasting. No other signs or symptoms concerning for DKA. Also has taken AZO. -Advised to continue monitoring blood glucose levels at home. If they are significantly elevated from her baseline, she develops vomiting, abdominal pain, or fevers, she needs to go to ER. Diagnosis and treatment plan were discussed and questions were answered to the patient's satisfaction. Pt acknowledged understanding of concepts and follow up plan. Specific signs and symptoms that would indicate the need for higher level of care were discussed in detail warranting prompt ER evaluation. JACQUELINE Huffman documented in this encounter [facility] 01-30-2023 Miscellaneous Notes January 31, 2023 PID: [id number] Belkys [place] [address] Dear Ms. Almaraz, We are pleased to inform you that the results of your recent breast imaging exam on 01/27/2023 are normal. Your mammogram demonstrates that you have dense breast tissue, which could hide abnormalities. Dense breast tissue, in and of itself, is a relatively common condition. Therefore, this information is not provided to cause undue concern; rather, it is to raise your awareness and promote discussion with your health care provider regarding the presence of dense breast tissue in addition to other risk factors. Early detection of cancer is very important. We also understand recommendations regarding breast cancer screening are controversial. Please discuss with your primary care provider which strategy is best for you and whether a mammogram is right for you. Your imaging studies and report will be kept on file at [facility] as part of your permanent medical record and are available for your continuing care. Thank you for allowing us to help in meeting your health care needs. Sincerely, Dr. Wong Interpreting Radiologist [facility] (Normal over 40) documented in this encounter [facility] 01-27-2023 Note HNO ID: [id number] Author: RT Rolo(R) Service: ? Author Type: Technologist Type: Progress Notes Filed: 01/27/2023 2:00 PM Note Text: Radiology Service Progress Note PATIENT NAME: Belkys Almaraz DATE OF SERVICE: January 27, 2023 TIME: 2:00 PM PATIENT IDENTITY VERIFICATION COMPLETED USING TWO (2) IDENTIFIERS: Name and Date of confirmed by patient verbally. FALL SCREENING: Has the patient had 2 falls in the last year or 1 fall with injury or currently using an Ambulatory Assistive Device (Walker, Cane, Wheelchair, Crutches, etc.)? No PATIENT GENDER DATA: Female. status: : No status: NO. PATIENT RELEVANT IMPLANT DATA REVIEWED: Not Applicable RADIOLOGY DEPARTMENT: Mammography PERIPHERAL IV DATA: Not applicable SIGNED BY: RT Rolo(R) January 27, 2023 2:00 PM [facility] 01-27-2023 History of Presen t illness Narrative Radiology Service Progress Note PATIENT NAME: Belkys Almaraz DATE OF SERVICE: January 27, 2023 TIME: 2:00 PM PATIENT IDENTITY VERIFICATION COMPLETED USING TWO (2) IDENTIFIERS: Name and Date of confirmed by patient verbally. FALL SCREENING: Has the patient had 2 falls in the last year or 1 fall with injury or currently using an Ambulatory Assistive Device (Walker, Cane, Wheelchair, Crutches, etc.)? No PATIENT GENDER DATA: Female. status: : No status: NO. PATIENT RELEVANT IMPLANT DATA REVIEWED: Not Applicable RADIOLOGY DEPARTMENT: Mammography PERIPHERAL IV DATA: Not applicable SIGNED BY: RT Rolo(R) January 27, 2023 2:00 PM documented in this encounter [facility] 06-17-2022 Note [facility] HISTORY & PHYSICAL NAME ACCOUNT SEX AGE ADMIT DISCHARGE PT MED. RECORD# NUMBER DATE DATE TYPE BELKYS ALMARAZ [id number] F [id number] 06[birth year] 2 [id number] ROOM: [facility] DATE OF : 48 DICTATING PHYSICIAN: Jhoana Clarke CHIEF COMPLAINT: Colon cancer screening. HISTORY OF PRESENT ILLNESS: Mrs. Almaraz is a 71-year-old female who presents for colon cancer screening. She denies any worrisome signs or symptoms at this time. Her last colonoscopy was in 2011, in which she believes polyps may have been removed. Recently, she did have a positive Cologuard test. PAST MEDICAL HISTORY: Hypertension and diabetes. MEDICATIONS: See MAR. ALLERGIES: Sulfa and aspirin. SOCIAL HISTORY: Negative x3. REVIEW OF SYSTEMS: Ten systems review of systems was negative. PHYSICAL EXAMINATION GENERAL APPEARANCE: In general, she is alert, oriented, and appropriate with no acute distress. VITAL SIGNS: She is afebrile. Vital signs stable, within normal limits. LUNGS: Lungs are clear to auscultation bilaterally. HEART: Regular rate and rhythm. ABDOMEN: Abdomen is soft, nontender, and nondistended. EXTREMITIES: Extremities show no cyanosis, edema, or gross deformities. NEUROLOGIC: GCS of 15. Cranial nerves II-XII are grossly intact, 5/5 muscle strength, and all groups of sensation are grossly intact. IMPRESSION: This is a 71-year-old female requiring colon cancer screening. PLAN: I discussed the risks, benefits, and alternatives of colonoscopy. All questions were answered, and she voiced understanding and agreement with the plan. Page 1 of 2 BELKYS ALMARAZ History & Physical BELKYS ALMARAZ :1950 Dictated By: Jhoana Clarke MD 06/01/22 07:48 JOB #: [id number] Transcribed By: [email or web address] 06/01/22 08:17 Electronically signed by: E-SIGN DR. CLARKE 06/17/22 10:29 Update to H&P: [ ] No changes: I have examined the patient and reviewed the H&P and there are no changes. [ ] As previously dictated with the following changes: PHYSICIAN SIGNATURE: TIME: DATE: Page 2 of 2 BELKYS ALMARAZ History & Physical [facility] documented as of this encounter (statuses as of 02/01/2023) [facility]11-[facility] History of Past illness Narrative* Problem Noted Date Resolved Date Change in bowel habits 09/14/2016 6 documented as of this encounter (statuses as of 04/09/2023) [facility] History of Past illness Narrative* Problem Noted Date Diagnosed Date Resolved Date Change in bowel habits 09/14/201609/14 documented as of this encounter (statuses as of 09/17/2023) [facility] Urinary frequency- Primary Glucosuria Glycosuria [facility] Encounter for gynecological examination (general) (routine) without abnormal findings Encounter for screening mammogram for breast cancer [facility] Diagnostic Procedure Only (Routine) - Closed Specialty Diagnoses / Procedures Referred By Contac t Referred To Contact [facility] Diagnoses Encounter for gynecological examination (general) (routine) without abnormal findings Encounter for screening mammogram for breast cancer Procedures BILLIE SCREENING SCREENING MAMMOGRAPHY BI 2-VIEW BREAST INC Julio Thakur MD [address] [place] [address] [facility] [address] [place] [address] Referral ID Status Reason Start Date Expiration Date V isits Requested Visits Authorized [id number] Closed Auto-Generate d Referral 01/14/2022 02/13/2023 1 1 [facility] for visit Narrative* Diagnostic Procedure Only (Routine) - Closed Specialty Diagnoses / Procedures Referred By Contac t Referred To Contact [facility] Diagnoses Encounter for gynecological examination (general) (routine) without abnormal findings Encounter for screening mammogram for breast cancer Procedures BILLIE SCREENING SCREENING MAMMOGRAPHY BI 2-VIEW BREAST INC CAD Julio Azevedo MD [address] [place] [address] [facility] [address] [place] [address] Referral ID Status Reason Start Date Expiration Date V isits Requested Visits Authorized [id number] Closed Auto-Generate d Referral 01/14/2022 02/13/2023 1 1 [facility] Summary Purpose Family History Breast cancer Status:Active Comments:Aunts, Cousin Cerebrovascular Accident Status:Active Comment s:Grandfather Hypertension Status:Active Comments:Father. Osteoarthritis Status:Active Comments:Mother. Breast cancer Status:Active Comments:Aunts, Cousin Cerebrovascular Accident Status:Active Comment s:Grandfather Hypertension Status:Active Comments:Father. Osteoarthritis Status:Active Comments:Mother. Breast cancer Status:Active Comments:Aunts, Cousin Cerebrovascular Accident Status:Active Comment s:Grandfather Hypertension Status:Active Comments:Father. Osteoarthritis Status:Active Comments:Mother. Breast cancer Status:Active Comments:Aunts, Cousin Cerebrovascular Accident Status:Active Comment s:Grandfather Hypertension Status:Active Comments:Father. Osteoarthritis Status:Active Comments:Mother. Breast cancer Status:Active Comments:Aunts, Cousin Cerebrovascular Accident Status:Active Comment s:Grandfather Hypertension Status:Active Comments:Father. Osteoarthritis Status:Active Comments:Mother. Breast cancer Status:Active Comments:Aunts, Cousin Cerebrovascular Accident Status:Active Comment s:Grandfather Hypertension Status:Active Comments:Father. Osteoarthritis Status:Active Comments:Mother. Breast cancer Status:Active Comments:Aunts, Cousin Cerebrovascular Accident Status:Active Comment s:Grandfather Hypertension Status:Active Comments:Father. Osteoarthritis Status:Active Comments:Mother. Breast cancer Status:Active Comments:Aunts, Cousin Cerebrovascular Accident Status:Active Comment s:Grandfather Hypertension Status:Active Comments:Father. Osteoarthritis Status:Active Comments:Mother. Breast cancer Status:Active Comments:Aunts, Cousin Cerebrovascular Accident Status:Active Comment s:Grandfather Hypertension Status:Active Comments:Father. Osteoarthritis Status:Active Comments:Mother. Advance Directives No Advanced Directives Records FoundNo Advanced Directives Records FoundNo Advanced Directives Records Found Additional Source Comments INFORMATION SOURCE (unrecogn ized section and content) DATE CREATED AUTHOR AUTHOR'S ORGANIZ ATION 05/12/2023 [facility] DATE CREATED AUTHOR AUTHOR'S ORGANIZ ATION 10/27/2023 [facility] Source Comments (unrecognize d section and content) In the event this informatio n is protected by the Federal Confidentiality of Alcohol and Drug Abuse Patient Records regulations: The Federal rules restrict any use of the information to criminally investigate or prosecute any alcohol or drug abuse patient.[facility] the event this information is protected by the Federal Confidentiality of Alcohol and Drug Abuse Patient Records regulations: The Federal rules restrict any use of the information to criminally investigate or prosecute any alcohol or drug abuse patient.[facility] the event this information is protected by the Federal Confidentiality of Alcohol and Drug Abuse Patient Records regulations: The Federal rules restrict any use of the information to criminally investigate or prosecute any alcohol or drug abuse patient.[facility] Care Teams (unrecognized sec tion and content) Director Web Relationship Specialty Start Date End Date Antione Ocampo MD [address] [place] [address] PCP - General Family Medicine 04/09/23 Director Web Relationship Specialty Start Date End Date Esperanza Ng [address] [place], [place] [id number] PCP - General 11/18/03 04/08/23 Reason for Visit (unrecogniz ed section and content) FOR RECORDS PERTAINING TO PATIENTS WHO ARE OR HAVE BEEN ENROLLED IN A CHEMICAL DEPENDENCY/SUBSTANCEABUSE PROGRAM, SOME INFORMATION MAY BE OMITTED. This clinical summary was aggregated from multiple sources. Caution should be exercised in using it in the provision of clinical care. This summary normalizes information from multiple sources, and as a consequence, information in this document may materially change the coding, format and clinical context of patient data. In addition, data may be omitted in some cases. CLINICAL DECISIONS SHOULD BE BASED ON THE PRIMARY CLINICAL RECORDS. [facility] [employer] [facility]. provides no warranty or guarantee of the accuracy or completeness of information in this document.
[2024-01-18] MEDS: Lactated Ringers 1,000 ML 15 ML IV (06:40)
[2024-01-18 06:41] VITALS: BP 147/78; PULSE 75; RESP 16; TEMP 36.6; O2SAT 99; BMI 26.4
[2024-01-18 06:41] LABS: Hemoglobin 13.4 g/dL (12.0-15.0); Mean Corp Hgb Conc 32.7 g/dL (32-36); Mean Corpuscular Hgb 29.8 pg (27.0-32.0); Mean Corpuscular Volume 91.1 fL (81-99); Mean Platelet Vol. 9.6 fl (6.2-12.0); Platelet Count 233 K/mm3 (150-450); RBC Distribution Width CV 12.6 % (11.6-14.6); RBC Distribution Width SD 41.7 fl (35.1-43.9); White Blood Count 4.5 K/mm3 (4.4-11.0)
--- NOTE | 2024-01-18 07:30 | BLA_PTH ---
PATHOLOGY RESULTS PATIENT: BELKYS ALMARAZ [place] [facility] [place] U#:[id number] AGE/SX: 73/F ROOM: RE01/18/[address]: Dr. Ashlee Vela MD : 1950 BED: DIS: 01/18/2024 SPEC #: [id number] RECD: 01/18/24 10:04 STATUS: KENNEDY WARD #: [id number] ARUN: 01/18/24 07:[address]: Ashlee Vela DEPT: SURGICAL PATHOLOGY RECD BY: Smiley Celestin ENTERED: 01/18/24 10:05 SP TYPE: BLADDER BX OTHR DR: Dr. Antione Harris MD Tissues: Urinary bladder, NOS Procedures: Surgery Specimen Level IV HEADER OPERATION: Cysto, biopsy, fulguration, bladder lesion PRE-OP DIAGNOSIS: Lesion of bladder TISSUE SUBMITTED: Bladder biopsy MICROSCOPIC DIAGNOSIS Bladder, biopsy: Fragments of urothelial mucosa with epithelial hyperplasia, squamous metaplasia and chronic inflammation. Negative for malignancy. See comment. KATEY:vicente 01/19/2024 COMMENT Detrusor muscle is not seen in the specimen. Correlation with clinical, cystoscopic findings and appropriate follow up are necessary. Case has been reviewed in consultation with Dr. Costa who concurs with the above diagnosis. IDC:AM MICROSCOPIC DESCRIPTION Slides are reviewed. GROSS DESCRIPTION Received in fixative is one container labeled with the patient's name and designated bladder biopsy. The specimen consists of three irregular fragments of gaines soft tissue that in aggregate measure 0.3 x 0.2 x 0.1 cm. The specimen is totally submitted in one cassette. / KATEY:vicente 01/18/2024 TC:3 [facility]: [id number]
[2024-01-18 09:05] VITALS: BP 121/57; BP 147/78; PULSE 58; RESP 16; TEMP 36.1; O2SAT 100
--- NOTE | 2024-01-18 09:09 | DCINST_ITS ---
Discharge Instructions Diet Discharge Diet: No restrictions Activity Discharge Activity: Return to Normal Activity May resume sexual activity in: No Restrictions Dressing / Incision Call your doctor if you observe: Fever of 101 or Higher, Inability to urinate and Inability to have a bowel movement Follow Up Care Please Follow Up With: Ashlee Vela MD When: as scheduled Test Results: Test results from this visit will be discussed in further detail at your follow- up appointment, if applicable. Discharge Plan Admission Attending Provider: Ashlee Vela Primary Care Provider: Antione Harris Discharge Orders/Prescriptions Prescriptions: New oxycodone-acetaminophen [Percocet] 5-325 mg tablet 1 tab PO Q8H PRN (Reason: pain) 1 Days Qty: 3 0RF Continued atorvastatin 40 mg tablet 40 mg PO DAILY Januvia 100 mg tablet 100 mg PO DAILY metformin 500 mg tablet extended release 24 hr 500 mg PO .P LUNCH metformin 1,000 mg tablet 1,000 mg PO .P DINNER C Complex 1,000 mg tablet extended release 1,000 mg PO DAILY cholecalciferol (vitamin D3) [Vitamin D3] 50 mcg (2,000 unit) capsule 50 mcg PO DAILY biotin 10 mg tablet 10 mg PO DAILY Centrum Silver Women 8 mg iron-400 mcg-50 mcg tablet 1 tab PO DAILY [place]-3 350 mg-235 mg- 90 mg-597 mg capsule,delayed release(DR/EC) 1 cap PO DAILY calcium carbonate [Calcium 500] 500 mg calcium (1,250 mg) tablet,chewable 500 mg PO DAILY cinnamon bark [Cinnamon] 500 mg capsule 1,000 mg PO BID Azo Cranberry 250 mg tablet,chewable 500 mg PO TID trimethoprim 100 mg tablet 100 mg PO QHS Patient Comments: TAKE 1 TABLET BY MOUTH EVERY DAY AT BEDTIME Culturelle 10 billion cell capsule 1 cap PO DAILY Referrals / Follow Up: Antione Harris MD [Primary Care Provider] - Disposition Disposition (needs filled in before D/C Order can be placed): Home, Self Care
[2024-01-18 09:10] VITALS: BP 121/58; BP 147/78; PULSE 58; RESP 16; O2SAT 99
[2024-01-18 09:15] VITALS: BP 120/62; BP 147/78; PULSE 51; RESP 16; O2SAT 97
--- NOTE | 2024-01-18 09:15 | PCM.OPRPT ---
Report of Operation Date of Procedure: 01/18/24 Pre-Operative Diagnosis: Bladder lesion, recurrent urinary tract infection Post-Operative Diagnosis: Same Surgery/Procedure Performed:: Cystoscopy, bladder biopsy with fulguration Surgeon: Ashlee Vela Type of Anesthesia: MAC Specimen's removed: Bladder biopsy Description of Procedure: The patient is a 73-year-old female with recurrent urinary tract infections who had an office cystoscopy revealing a small lesion on the trigone consistent with squamous metaplasia. She now presents for biopsy with fulguration for tissue management. Informed consent was obtained. The patient was taken to the operating room and placed on the operating room table. Anesthesia monitored the head, neck, airway, IV access and vital signs throughout the case. Once anesthesia was appropriately administered, the patient was placed into dorsolithotomy position and was prepped and draped in usual sterile fashion. The cystoscope was inserted through the urethra under direct visualization into the urinary bladder. The bladder and urethral mucosa's were visualized in their entirety and the same findings were identified with a very small lesion, smaller today than in the office, on the trigone. It appears that the treatment she is taking for her infections is working. The biopsy forceps were used to remove the small lesion in its entirety. The area was fulgurated for hemostatic control and tissue management. Once hemostasis was obtained, the bladder was emptied and the cystoscope was removed. She was awakened and taken to the recovery room in good condition. There were no complications during the procedure. Grafts/Implants Used: None Complications None Admit VTE Documentation VTE Present on Admission: Yes VTE Mechan Device Prophylaxis: SCD's VTE Pharm Prophylaxis ordered?: No Reason prophylaxis not ordered:: Treatment Not Indicated
[2024-01-18 09:20] VITALS: BP 111/67; BP 147/78; PULSE 54; RESP 16; TEMP 36.1; O2SAT 100
[2024-01-18 09:38] VITALS: BP 147/78
[2024-01-18 09:42] LABS: Bedside Glucose 162 mg/dL (74-106)
== END 2024-01-18 10:04 | disposition home or self-care (01) ==
LOC: SDC 05:45 → AC 05:46
PROVIDERS: PCP Family Medicine; Referring Provider Urology; Visit Provider Urology
PROC: 0TBB8ZX Excision of Bladder, Via Natural or Artificial Opening Endoscopic, Diagnostic (ICD-10-PCS; CPT 52234; principal; 2024-01-18 07:20)
DX: N32.9 Bladder disorder, unspecified (principal); E11.9 Type 2 diabetes mellitus without complications; Z86.79 Personal history of other diseases of the circulatory system; Z90.89 Acquired absence of other organs; Z98.51 Tubal ligation status; N39.0 Urinary tract infection, site not specified; R35.1 Nocturia; N95.2 Postmenopausal atrophic vaginitis; N81.10 Cystocele, unspecified; N81.6 Rectocele
CPT/HCPCS: 52234; 00912; 82962; 85027; 88305; J7120; J2405

== ENCOUNTER → 2024-05-24 | Outpatient (CLI) | payer MEDICARE, SELFPAY ==
--- NOTE | 2024-05-24 15:28 | US_ITS ---
STUDY: ULTRASOUND OF THE FEMALE PELVIS - COMPLETE REASON FOR EXAM: Female, 73 years old. ABNORMAL UTERINE BLEEDING LMP: Menopause TECHNIQUE: Transabdominal TECHNICAL QUALITY: Adequate. COMPARISON: None. FINDINGS: The uterus is anteverted and is in a midline position. The uterus measures 7.2 x 4.6 x 2.9 cm. Normal uterine cervix. The endometrium measures 4 mm in thickness, and is hyperechoic. There is no demonstrated endometrial mass. There is no demonstrated myometrial mass. I.U.D. - The patient does not have an I.U.D. The right ovary is visualized. The right ovary measures 1.7 x 1.2 x 1.4 cm. There is no right ovarian cyst or ovarian mass. There is no visualized right adnexal mass or complex lesion. There is normal arterial and normal venous vascularity. The left ovary is visualized. The left ovary measures 1.9 x 1.0 x 0.9 cm. There is no left ovarian cyst or ovarian mass. There is no visualized left adnexal mass or complex lesion. There is normal arterial and normal venous vascularity. There is no fluid in the cul-de-sac. The pre void volume of the bladder was 182 ml. The post void volume of the bladder was ml. Polycystic ovary disease: No. US/Pelvic (Non ) IMPRESSION: Normal female pelvis. Electronically Signed: Tim Chiu MD at 16:10 EDT ,
== END | disposition home or self-care (01) ==
PROVIDERS: PCP Family Medicine; Referring Provider Urology; Visit Provider Urology
DX: N93.9 Abnormal uterine and vaginal bleeding, unspecified (principal)
CPT/HCPCS: 76856